=== PATIENT | male | born 1945 | race Hispanic/Latino ===

== ENCOUNTER 2017-06-07 08:29 | Outpatient (CLI) | payer MEDICARE, MEDICAID ==
--- NOTE | 2017-06-07 10:45 | ULT ---
ABDOMINAL SONOGRAM: HISTORY: Abdominal pain. FINDINGS: The gallbladder has a normal appearance without evidence of stones. The common duct is 0.7 cm in di ameter. The liver is unremarkable without focal mass or intrahepatic biliary dilatation. No free f luid is visible. Echogenicities associated with the kidneys are favored to represent arcuate arteri es. The spleen and visualized portions of the abdominal aorta, IVC, and pancreas have a normal sono graphic appearance. IMPRESSION: No significant abnormalities are demonstrated. POS: BELKISH
== END 2017-06-07 08:30 | disposition home or self-care (01) ==
LOC: ULT 08:29
PROVIDERS: ATTEND Family Medicine
DX: R10.9 Unspecified abdominal pain (principal)
CPT/HCPCS: 76700

== ENCOUNTER 2017-11-08 14:50 | Emergency (ER) | payer MEDICARE, MEDICAID ==
[2017-11-08 16:30] LABS: CKMB 2.6 ng/mL (0-6.6); Troponin I 0.017 ng/mL (< 0.028)
[2017-11-08 16:32] LABS: #Eosinphils 0.2 thou/uL (0.0-0.7); #Lymphocytes 1.1 thou/uL (1.20-3.40); #Monocytes 0.7 thou/uL (0.11-0.59); #Neutrophils 7.3 thou/uL (1.40-6.50); %Basophils 0.4 % (0.0-1.0); %Eosinophils 1.7 % (0.0-10.0); %Lymphocytes 11.5 % (21.0-51.0); %Monocytes 7.4 % (0.0-10.0); Hemoglobin 13.7 g/dL (14.0-18.0); Mean Corpuscular HGB CONC 30.7 g/dL (32.0-36.0); Mean Corpuscular Hemoglobin 31.7 pg (27.0-31.0); Mean Platelet Volume 10.3 fL (7.4-10.4); PLT Morphology Comment Appears Decreased; Platelet Count 113 thou/uL (130-400); RBC Distribution Width 13.2 % (11.5-14.5); Red Blood Cell (RBC) Count 4.32 mill/uL (4.70-6.10); White Blood Cell (WBC) Count 9.2 thou/uL (4.8-10.8)
[2017-11-08 17:07] LABS: ALT (SGPT) 10 U/L (8-55); AST (SGOT) 11 U/L (5-34); Alkaline Phosphatase 141 U/L (40-150); Anion Gap 11 mmol/L (10-20); BUN (Urea Nitrogen) 31 mg/dL (8.4-25.7); Bilirubin, Total 0.7 mg/dL (0.2-1.2); CK (CPK) 99 U/L (30-200); Calc. Creatinine Clearance 0 mL/min (70-130); Calcium 9.8 mg/dL (7.8-10.44); Carbon Dioxide 27 mmol/L (23-31); Chloride 105 mmol/L (98-107); Estimated GFR-MDRD 37; Globulin 3.1 g/dL (2.4-3.5); Glucose 192 mg/dL (83-110); Lipase 33 U/L (8-78); Potassium 5.2 mmol/L (3.5-5.1); Protein, Total 7.1 g/dL (5.8-8.1); Sodium 138 mmol/L (136-145)
--- NOTE | 2017-11-08 18:12 | RAD ---
PORTABLE CHEST: History: Cardiac symptoms. Comparison: 06-22-15 FINDINGS: Mild increased interstitial markings in the left lower lung. No evidence of confluent infiltrate or e ffusion. Heart size is in normal range with post op sternotomy changes noted. IMPRESSION: Increased interstitial markings in the left lower lung could potentially represent an interstitial in flammatory process. This may represent some chronic change. No confluent infiltrate and no evidence o f vascular congestion. POS: BELKIS
== END 2017-11-08 17:50 | disposition home or self-care (01) ==
LOC: ERS 14:50
DX: I11.0 Hypertensive heart disease with heart failure (principal); I50.9 Heart failure, unspecified; M25.572 Pain in left ankle and joints of left foot; E11.9 Type 2 diabetes mellitus without complications; E78.5 Hyperlipidemia, unspecified; Z79.4 Long term (current) use of insulin; Z79.899 Other long term (current) drug therapy
CPT/HCPCS: 36415; 71045; 80053; 82553; 83690; 83880; 84484; 85025; 93005

== ENCOUNTER 2017-12-20 13:38 | Outpatient (CLI) | payer MEDICARE, MEDICAID ==
--- NOTE | 2017-12-20 15:48 | ULT ---
BILATERAL LOWER EXTREMITY ARTERIAL VASCULAR DUPLEX WITH COLOR AND SPECTRAL DOPPLER IMAGING: HISTORY: A 72-year-old male with claudication. FINDINGS: Examination performed from groin to ankle bilaterally including visualized common femoral artery, pro kristin femoral artery, proximal mid and distal superficial femoral artery, popliteal, anterior tibial, posterior tibial, and dorsalis pedis arteries are evaluated. There is biphasic flow on the right si de from the common femoral artery down to the level of the popliteal artery with monophasic flow and decreased velocities in the anterior tibial artery and posterior tibial artery with the dorsalis pedi s already demonstrated. On the left side, there is biphasic flow involving the common femoral artery and profunda femoral artery and proximal superficial femoral artery with triphasic flow in the mid a nd distal superficial femoral artery and monophasic flow in the popliteal artery, anterior tibial art diana, and posterior vertebral artery and no flow documented in the left dorsalis pedis artery. IMPRESSION: Findings indicate moderate to severe bilateral lower extremity arteriovascular disease. Consider fur ther evaluation with bilateral lower extremity runoff CT angiogram for further assessment. POS: PARUL
== END 2017-12-20 13:39 | disposition home or self-care (01) ==
LOC: ULT 13:38
PROVIDERS: ATTEND Family Medicine
DX: M79.606 Pain in leg, unspecified (principal); I70.213 Atherosclerosis of native arteries of extremities with intermittent claudication, bilateral legs; D69.59 Other secondary thrombocytopenia; I69.351 Hemiplegia and hemiparesis following cerebral infarction affecting right dominant side
CPT/HCPCS: 93923

== ENCOUNTER 2018-03-23 13:34 | Outpatient (CLI) | payer MEDICARE, MEDICAID | END 2018-03-23 13:35 | disposition home or self-care (01) | LOC: BICMRI 13:34 | PROVIDERS: ATTEND Family Medicine | DX: M50.00 Cervical disc disorder with myelopathy, unspecified cervical region (principal); M47.12 Other spondylosis with myelopathy, cervical region; M50.021 Cervical disc disorder at C4-C5 level with myelopathy | CPT/HCPCS: 72141 ==

== ENCOUNTER 2018-06-13 11:30 | Inpatient (IN) | payer MEDICARE, MEDICAID ==
[2018-08-16 09:38] VITALS: BMI 25.6
[2018-08-23] MEDS ORDERED: Sodium Chloride 0.9% 10 ML ONE ×2 (06:37→06:40)
[2018-08-23] MEDS ORDERED: Thrombin 5000 UNITS/5 ML VIAL ONE ×2 (06:37→06:40)
[2018-08-23] MEDS ORDERED: Bacitracin Zinc Ointment 30 gm TUBE ONE (06:52)
[2018-08-23] MEDS ORDERED: CEFAZOLIN 2 GM/50 ML BAG ONE (06:54)
[2018-08-23] MEDS ORDERED: Fentanyl 250 MCG/5 ML VIAL ONE (07:09)
[2018-08-23] MEDS ORDERED: KETAMINE 100 MG/ML (5ML VIAL) ONE (07:10)
[2018-08-23] MEDS ORDERED: Insulin Regular 300 UNITS/3 ML VIAL ONE (07:33)
[2018-08-23] MEDS ORDERED: Nitroglycerin 2% Ointment 1 INCH/1 GM Packet ONE (09:29)
[2018-08-23] MEDS ORDERED: Dextrose 50% Abboject 50 ML SYRINGE ONE (09:47)
[2018-08-23] MEDS ORDERED: Morphine 2 MG/ML SYRINGE SLOW IVP PRN (12:48)
[2018-08-23] MEDS ORDERED: Fleet Enema 133 ML BOT PR PRN (12:48)
[2018-08-23] MEDS ORDERED: Mag-Al 1200 mg/1200 mg/30 ML UDCUP PO PRN (12:48)
[2018-08-23] MEDS ORDERED: Bisacodyl 10 MG SUPP PR PRN (12:48)
[2018-08-23] MEDS ORDERED: traMADol HCl 50 MG TAB PO PRN ×2 (12:48)
[2018-08-23] MEDS ORDERED: Promethazine HCl 25 MG/ML VIAL IM PRN ×2 (12:48→13:00)
[2018-08-23] MEDS ORDERED: Milk Of Magnesia 30 ML UDCUP PO PRN (12:48)
[2018-08-23] MEDS ORDERED: PACU-Morphine 4MG/ML VIAL SLOW IVP PRN (13:00)
[2018-08-23] MEDS ORDERED: Meperidine HCl/PF 25 MG/ML VIAL SLOW IVP PRN (13:00)
[2018-08-23] MEDS ORDERED: Ondansetron HCl/PF 4 MG/2 ML Vial IVP PRN (13:00)
[2018-08-23] MEDS ORDERED: Morphine Sulfate 2 MG/ML SYRINGE SLOW IVP PRN (13:00)
[2018-08-23] MEDS ORDERED: HYDROmorphone 2 MG/ML VIAL SLOW IVP PRN (13:00)
[2018-08-23] MEDS ORDERED: Promethazine HCl 25 MG/ML VIAL SLOW IVP PRN (13:00)
[2018-08-23] MEDS ORDERED: SUGAMMADEX SODIUM 200 MG/2 ML VIAL ONE (13:04)
--- NOTE | 2018-08-23 15:08 | OP ---
DATE OF PROCEDURE: 08/23/2018 OPERATING ROOM: 12. WOUND CLASSIFICATION: Type 1 wound. DRILL PRESSER: Ted Anguiano PA-C. PREPROCEDURE DIAGNOSIS: Multilevel spinal cord compression with circumferential stenosis and severe myelopathy. POSTPROCEDURE DIAGNOSIS: Multilevel spinal cord compression with circumferential stenosis and severe myelopathy. PROCEDURE PERFORMED: 1. Anterior C3-C4, C4-C5, C5-C6, and C6-C7 diskectomies for decompression of the spinal cord and nerve roots C3, C4, C5, C6, and C7. 2. Placement of interbody spacers for arthrodesis, C3-C4, C4-C5, C5-C6, and C6-C7 for arthrodesis, packed with local bone autograft obtained from same incision allograft. 3. Anterior cervical plate and screw fixation C3, C4, C5, C6, and C7. 4. Stage procedure done on the same day under the same anesthesia with posterior laminectomy C3, C4, C5, C6, and C7. 5. Screw hanna fixation C3, C4, C5, C6, and C7 for posterior lateral mass arthrodesis. 6. Posterior lateral mass fixation. 7. Posterior lateral mass arthrodesis C3, C4, C5, C6, and C7. 8. Use for arthrodesis with local bone autograft obtained from the same incision allograft. 9. Use of operative microscope for microdissection. DESCRIPTION OF PROCEDURE: After informed consent was obtained from the patient, he was brought to OR. Appropriate patient pause and identification were carried out. He was placed supine on the OR table. His cervical spine kept in neutral position. We identified a right anterior michael that would allow for approach to C3 all the way down to C7 segments. This area was sterilely cleansed, prepared and draped. Appropriate patient pause and identification were carried out. The wound was then opened from C3 and we proceeded lateral to the larynx and pharynx, medial to the right carotid sheath and identified the C3, C4, C5, C6, and C7 segments. Localization film confirmed area of interest. We then performed distraction at C3-C4 and diskectomy was performed there. Spacer was placed, packed with graft for arthrodesis. To the same procedure at C4-C5, C5-C6, and C6-C7 with diskectomies performed at all of those segments. Decompression of spinal cord and nerve roots and placement of interbody spacer packed with graft from C3-C4, C4-C5, C5-C6 and C6-C7. Anterior cervical plate and screw fixation then occurred from C3 all the way down to C7. I did use a separate plate at C3-C4 to maximize fixation given that I was not pleased with the 4 level opportunity that was posed to me. Final tightening occurred throughout. We then maximized hemostasis and the wound was closed in anatomic layers over drain. The patient was then placed and flipped prone. All appropriate points were padded. An incision was drawn out from C3 to C7 posteriorly and this area was sterilely cleansed, prepared, and draped. Appropriate patient pause and identification were carried out. The wound was then opened with a combination of sharp, monopolar, and blunt dissection and the C3, C4, C5, C6, and C7 segments were all exposed. Localization film confirmed our area of interest. We then performed lateral mass screw fixation from C3 to C7 bilaterally, although the right C7 lateral mass was quite small and I was not pleased with the purchase of the right C7 screw and as such, I opted to leave that screw out. Rods were placed and final tightening occurred. Copious irrigation occurred throughout. We then did a laminectomy from C3, C4, C5, C6, and C7 with excellent decompression of the spinal cord and nerve roots. Arthrodesis then occurred in the posterior lateral mass regions at C3, C4, C5, C6, and C7. Local bone autograft was obtained from the same incision allograft. The wound was then closed in anatomic layers following sprinkling of vancomycin powder. The patient then emerged from anesthesia. Job ID: [id number]
[2018-08-23] MEDS: Sodium Chloride 0.9% 1,000 ML IV SCH (16:03)
[2018-08-23] MEDS: tiZANidine HCl 4 MG TAB PO PRN ×2 (16:11→21:06)
[2018-08-23] MEDS: HumaLOG 300 UNITS/3 ML VIAL SC SCH ×2 (16:16→20:18)
[2018-08-23] MEDS: CEFAZOLIN 2 GM/50 ML BAG IVPB SCH ×2 (16:16→23:24)
[2018-08-23] MEDS ORDERED: Amlodipine 5 MG TAB PO SCH (16:30)
[2018-08-23] MEDS ORDERED: Atenolol 25 MG TAB PO SCH (16:30)
[2018-08-23] MEDS: Atorvastatin Calcium 40 MG TAB PO SCH (20:02)
[2018-08-23] MEDS: Insulin Glargine 25 UNITS in Pre-Filled Syringe SC SCH (20:03)
[2018-08-23] MEDS ORDERED: Non-Formulary Item 1 EACH (Levemir Flexpen [Levemir Flexpen] 25 UNIT) SC SCH (21:00)
[2018-08-23] MEDS ORDERED: Lidocaine 1% PF 5 ML VIAL ONE (21:19)
[2018-08-23] MEDS ORDERED: Dexamethasone 20 MG/5 ML VIAL ONE (21:19)
[2018-08-23] MEDS ORDERED: PROPOFOL 200 MG/20 ML VIAL ONE (21:19)
[2018-08-23] MEDS ORDERED: PHENYLEPHRINE-NS 100 MCG/ML 10 ML SYRINGE ONE (21:19)
[2018-08-23] MEDS ORDERED: Sterile Water 10 ML VIAL ONE (21:19)
[2018-08-23] MEDS ORDERED: Glycopyrrolate 0.2 MG/ML 5 ML SYRINGE ONE (21:19)
[2018-08-23] MEDS ORDERED: Ondansetron PF 4 MG/2 ML Vial ONE (21:19)
[2018-08-23] MEDS ORDERED: ePHEDrine/0.9% NaCl/PF SYRINGE 50 mg/10 ml ONE (21:19)
[2018-08-23] MEDS ORDERED: CEFAZOLIN 1 GM VIAL ONE (21:19)
[2018-08-23] MEDS ORDERED: Metoclopramide HCl 10 MG/2 ML VIAL ONE (21:19)
[2018-08-24] MEDS: Sodium Chloride 0.9% 1,000 ML IV SCH ×2 (06:10→16:39)
[2018-08-24] MEDS: Amlodipine 5 MG TAB PO SCH (08:01)
[2018-08-24] MEDS: CEFAZOLIN 2 GM/50 ML BAG IVPB SCH ×3 (08:01→23:36)
[2018-08-24] MEDS: Atenolol 25 MG TAB PO SCH (09:57)
[2018-08-24] MEDS: Ezetimibe 10 MG TAB PO SCH (09:58)
[2018-08-24] MEDS: HumaLOG 300 UNITS/3 ML VIAL SC SCH ×3 (09:58→21:53)
[2018-08-24] MEDS: Insulin Glargine 25 UNITS in Pre-Filled Syringe SC SCH ×2 (10:04→21:53)
--- NOTE | 2018-08-24 10:06 | PRG ---
DATE OF SERVICE: 08/24/2018 SUBJECTIVE: Mr. Wright is postoperative day #1 from a major surgery involving both an anterior and posterior decompression and fusion of his C3-C7 segments of the cervical spine for severe spinal cord compression. He states already he has noticed improvement in his upper and lower extremity function, and that he is now able to lift his left upper extremity, at the shoulder greater than 90 degrees which was significantly impaired preoperatively. Frankly, I think he looks great. His drain output anteriorly is certainly functioning well. We will leave it in place. I did put him in the ICU postoperatively just to watch his pulmonary status given his age of 73 and his cardiac and his cerebral ischemic history. We will initiate a baby aspirin today and transfer him to the floor. The collar only needs to be worn when he is out of bed, although he may wear it any other time for comfort. We will consult Physiatry. He would certainly benefit in my opinion from inpatient rehab. Job ID: [id number]
[2018-08-24] MEDS ORDERED: Aspirin 81 mg Enteric Coated Tablet PO SCH (10:15)
[2018-08-24] MEDS: tiZANidine HCl 4 MG TAB PO PRN (16:43)
[2018-08-24] MEDS: Atorvastatin Calcium 40 MG TAB PO SCH (21:32)
[2018-08-25] MEDS: Sodium Chloride 0.9% 1,000 ML IV SCH ×2 (05:25→18:27)
[2018-08-25] MEDS: Atenolol 25 MG TAB PO SCH (08:14)
[2018-08-25] MEDS: Ezetimibe 10 MG TAB PO SCH (08:14)
[2018-08-25] MEDS: Amlodipine 5 MG TAB PO SCH (08:15)
[2018-08-25] MEDS: Insulin Glargine 25 UNITS in Pre-Filled Syringe SC SCH ×2 (08:16→20:55)
[2018-08-25] MEDS: CEFAZOLIN 2 GM/50 ML BAG IVPB SCH ×2 (08:16→15:13)
[2018-08-25] MEDS: HumaLOG 300 UNITS/3 ML VIAL SC SCH ×3 (08:32→20:55)
[2018-08-25] MEDS ORDERED: Tamsulosin HCl 0.4 MG CAP PO SCH (10:15)
--- NOTE | 2018-08-25 10:42 | PRG ---
DATE OF SERVICE: 08/25/2018 SUBJECTIVE: Mr. Wright is postoperative day two from anterior-posterior decompression and fusion. He has noticed improvement in his upper and lower extremity function, although a bit limited in his right shoulder motion. I suspect a component of this may be frozen shoulder from preoperative longstanding myelopathy and associated weakness. He is ambulating in the halls. We will remove his Moore catheter. We need to remove his MARLA drain, which may be today or tomorrow. He is wanting to go home. We will see, if he meets criteria versus inpatient rehab. Job ID: [id number]
[2018-08-25] MEDS: Atorvastatin Calcium 40 MG TAB PO SCH (20:55)
[2018-08-26] MEDS: tiZANidine HCl 4 MG TAB PO PRN (00:09)
[2018-08-26] MEDS: Sodium Chloride 0.9% 1,000 ML IV SCH (07:26)
[2018-08-26] MEDS: CEFAZOLIN 2 GM/50 ML BAG IVPB SCH ×2 (08:13)
[2018-08-26] MEDS: Atenolol 25 MG TAB PO SCH (08:14)
[2018-08-26] MEDS: Ezetimibe 10 MG TAB PO SCH (08:14)
[2018-08-26] MEDS: Amlodipine 5 MG TAB PO SCH (08:15)
[2018-08-26 08:16] VITALS: BP 137/70
[2018-08-26] MEDS: HumaLOG 300 UNITS/3 ML VIAL SC SCH (08:16)
[2018-08-26] MEDS: Insulin Glargine 25 UNITS in Pre-Filled Syringe SC SCH (08:21)
[2018-08-26 08:33] VITALS: TEMP 97.5
== END 2018-08-26 11:35 | DRG 454 ==
LOC: SURG A 08-23 06:04 → CCU 08-23 15:23 → SURG A 08-24 21:05
PROVIDERS: ADMIT Surgery; ATTEND Surgery
PROC: 0RG20A0 Fusion of 2 or more Cervical Vertebral Joints with Interbody Fusion Device, Anterior Approach, Anterior Column, Open Approach (ICD-10-PCS; principal; 2018-08-23)
PROC: 0RG2071 Fusion of 2 or more Cervical Vertebral Joints with Autologous Tissue Substitute, Posterior Approach, Posterior Column, Open Approach (ICD-10-PCS; 2018-08-23)
PROC: 0RB30ZZ Excision of Cervical Vertebral Disc, Open Approach (ICD-10-PCS; 2018-08-23)
PROC: 01N10ZZ Release Cervical Nerve, Open Approach (ICD-10-PCS; 2018-08-23)
PROC: 00NW0ZZ Release Cervical Spinal Cord, Open Approach (ICD-10-PCS; 2018-08-23)
DX: M48.02 Spinal stenosis, cervical region (principal); G99.2 Myelopathy in diseases classified elsewhere; M54.12 Radiculopathy, cervical region
CPT/HCPCS: 36416; 76001; A4216; C1713; C1768; C1776; G8978-GP-CL; G8979-GP-CJ; G8987-GO-CK; G8988-GO-CI; J0690; J1100; J1815; J2001; J2405; J2704; J2765; J3010; J3370; J3490; J7620

== ENCOUNTER 2018-08-16 09:07 | Outpatient (CLI) | payer MEDICARE, MEDICAID ==
[2018-08-16 11:04] LABS: Hemoglobin 13.3 g/dL (14.0-18.0); Mean Corpuscular HGB CONC 31.7 g/dL (32.0-36.0); Mean Corpuscular Hemoglobin 32.1 pg (27.0-31.0); Mean Platelet Volume 8.6 fL (7.4-10.4); Platelet Count 107 thou/uL (130-400); RBC Distribution Width 12.7 % (11.5-14.5); Red Blood Cell (RBC) Count 4.15 mill/uL (4.70-6.10); White Blood Cell (WBC) Count 9.9 thou/uL (4.8-10.8)
[2018-08-16 11:10] LABS: INR-International Normal Ratio 1.1; PTT 31.3 SEC (22.9-36.1); Prothrombin Time 14.3 SEC (12.0-14.7)
[2018-08-16 11:24] LABS: Anion Gap 9 mmol/L (10-20); BUN (Urea Nitrogen) 33 mg/dL (8.4-25.7); Calc. Creatinine Clearance 0 mL/min (70-130); Calcium 9.3 mg/dL (7.8-10.44); Carbon Dioxide 30 mmol/L (23-31); Chloride 101 mmol/L (98-107); Estimated GFR-MDRD 37; Glucose 189 mg/dL (83-110); Potassium 4.5 mmol/L (3.5-5.1); Sodium 135 mmol/L (136-145)
== END 2018-08-16 09:08 | disposition home or self-care (01) ==
LOC: LABBT 09:07
PROVIDERS: ATTEND Surgery
DX: Z01.818 Encounter for other preprocedural examination (principal); M47.12 Other spondylosis with myelopathy, cervical region
CPT/HCPCS: 80048; 85027; 85610; 85730; 93005; 93010

== ENCOUNTER 2018-10-05 13:30 | Outpatient (CLI) | payer MEDICARE, MEDICAID ==
--- NOTE | 2018-10-05 14:16 | RAD ---
CERVICAL SPINE 4 VIEWS: INDICATION: Followup surgery. COMPARISON: Prior MRI of the cervical spine dated 03/23/2018. FINDINGS: Since the comparison MRI examination, there has been interval performance of an ACDF plating from C4 through C7. There is posterolateral spinal instrumentation spanning C3 through C7. The instrumentat ion projects in the expected position. Spinal alignment is within normal limits. Lung apices are cl ear. Lateral masses are symmetric. IMPRESSION: Postoperative cervical spine. POS: PARUL
== END 2018-10-05 13:31 | disposition home or self-care (01) ==
LOC: TBSIIMAG 13:30
PROVIDERS: ATTEND Surgery
DX: M47.12 Other spondylosis with myelopathy, cervical region (principal); M47.22 Other spondylosis with radiculopathy, cervical region; Z98.1 Arthrodesis status
CPT/HCPCS: 72040

== ENCOUNTER 2019-01-04 08:20 | Outpatient (CLI) | payer MEDICARE, MEDICAID ==
--- NOTE | 2019-01-04 09:26 | ULT ---
RIGHT UPPER QUADRANT ULTRASOUND: Date: 01/04/19 HISTORY: Right upper quadrant pain. FINDINGS: The liver, right kidney, and visualized portions of the pancreas appear normal. Common duct measures 4.0 mm in diameter. No gallstones, gallbladder wall thickening, or pericholecystic fluid seen. There is a trace amount of gallbladder sludge. No free fluid is seen. IMPRESSION: Trace gallbladder sludge, otherwise unremarkable exam. POS: TPC
== END 2019-01-04 08:21 | disposition home or self-care (01) ==
LOC: BICULT 08:20
PROVIDERS: ATTEND Family Medicine
DX: R10.9 Unspecified abdominal pain (principal)
CPT/HCPCS: 76705

== ENCOUNTER 2019-07-19 07:05 | Inpatient (IN) | payer MEDICARE, MEDICAID ==
--- NOTE | 2019-07-19 07:23 | CT ---
CT BRAIN NONCONTRAST: DATE: 07/19/2019 HISTORY: 74-year-old male with acute stroke symptoms. Left sided weakness. Dr. Erickson gave this acute stroke alert protocol by telephone to Dr. Vieyra at 7:19 AM on 07/19/2019 FINDINGS: There is no evidence of acute intra-axial or extra-axial hemorrhage. There is no midline shift or any other mass effect. There is no extra-axial fluid collection. There is no evidence of obstructive hydrocephalus. Calvarium is intact. There is diffuse brain parenchymal volume loss. There are low att enuation areas in the white matter. These are nonspecific, but in a patient of this age, they are probably chronic ischemic white matter changes due to microvascular atherosclerosis. Small old lacuna r infarction at the left thalamus, left cerebral peduncle, and left meagan. IMPRESSION: 1) No acute intracranial findings. 2) involutional changes and chronic ischemic white matter changes. 3) old lacunar infarction of left thalamus and left brainstem.
[2019-07-19] MEDS ORDERED: Lorazepam 2 MG/ML VIAL ONE (07:29)
[2019-07-19 07:41] LABS: INR-International Normal Ratio 1.1; PTT 29.6 SEC (22.9-36.1); Prothrombin Time 13.7 SEC (12.0-14.7)
[2019-07-19 07:44] LABS: #Eosinphils 0.1 thou/uL (0.0-0.7); #Lymphocytes 1.6 thou/uL (1.20-3.40); #Monocytes 0.8 thou/uL (0.11-0.59); %Basophils 0.2 % (0.0-1.0); %Eosinophils 1.3 % (0.0-10.0); %Lymphocytes 14.1 % (21.0-51.0); %Monocytes 7.1 % (0.0-10.0); %Neutrophils 77.4 % (42.0-75.0); Hemoglobin 13.5 g/dL (14.0-18.0); Mean Corpuscular HGB CONC 33.4 g/dL (32.0-36.0); Mean Corpuscular Hemoglobin 33.4 pg (27.0-31.0); Mean Corpuscular Volume 99.9 fL (78.0-98.0); Mean Platelet Volume 11.1 fL (7.4-10.4); Platelet Count 97 thou/uL (130-400); RBC Distribution Width 12.8 % (11.5-14.5); Red Blood Cell (RBC) Count 4.05 mill/uL (4.70-6.10); White Blood Cell (WBC) Count 11.6 thou/uL (4.8-10.8)
[2019-07-19 07:45] LABS: ALT (SGPT) 12 U/L (8-55); AST (SGOT) 11 U/L (5-34); Alkaline Phosphatase 178 U/L (40-110); Anion Gap 13 mmol/L (10-20); BUN (Urea Nitrogen) 32 mg/dL (8.4-25.7); Bilirubin, Total 0.5 mg/dL (0.2-1.2); Calc. Creatinine Clearance 0 mL/min (70-130); Calcium 9.4 mg/dL (7.8-10.44); Carbon Dioxide 27 mmol/L (23-31); Chloride 104 mmol/L (98-107); Estimated GFR-MDRD 31; Glucose 247 mg/dL (83-110); Potassium 4.5 mmol/L (3.5-5.1); Sodium 139 mmol/L (136-145)
[2019-07-19] MEDS ORDERED: Aspirin Chewable 81 MG TAB ONE (08:09)
[2019-07-19] MEDS ORDERED: hydrALAZINE 20 MG/ML VIAL ONE (08:37)
[2019-07-19] MEDS ORDERED: Haloperidol Lactate 5 MG/ML VIAL ONE ×3 (08:52→09:13)
[2019-07-19] MEDS ORDERED: Labetalol HCl 100 MG/20 ML VIAL SLOW IVP PRN (11:57)
[2019-07-19] MEDS ORDERED: HumaLOG 300 UNITS/3 ML VIAL SC PRN ×2 (11:57)
[2019-07-19] MEDS ORDERED: Dextrose 5% in Water 1,000 ML IV PRN (11:57)
[2019-07-19] MEDS ORDERED: Bisacodyl 10 MG SUPP PR PRN (11:57)
[2019-07-19] MEDS ORDERED: Dextrose 50% Abboject 50 ML SYRINGE SLOW IVP PRN (11:57)
[2019-07-19] MEDS ORDERED: hydrALAZINE 20 MG/ML VIAL SLOW IVP PRN (11:57)
[2019-07-19] MEDS ORDERED: Senokot S 8.6-50 MG TAB PO PRN (11:57)
[2019-07-19] MEDS ORDERED: Ondansetron PF 4 MG/2 ML Vial IVP PRN (11:57)
--- NOTE | 2019-07-19 12:34 | RAD ---
XR Chest 1 View HISTORY: TIA COMPARISON: 11/08/2017 FINDINGS: The heart size is normal. The aorta is tortuous. The lungs are well expanded without focal areas of consolidation, pneumothorax or pleural effusions. There are postoperative changes and metallic hardware in the cervical spine. There are postop changes of median sternotomy. IMPRESSION: No radiographic evidence of acute cardiopulmonary process.
[2019-07-19] MEDS ORDERED: Iopamidol-370 76% 500 ML 1 ML ONE (14:27)
--- NOTE | 2019-07-19 16:24 | HP ---
REASON FOR ADMISSION: Acute encephalopathy, possible CVA. HISTORY OF PRESENT ILLNESS: Please note, majority of this history is obtained by talking to the patient's and other family members in the room as the patient is not oriented at present. He apparently got up at 4:00 in the morning and was unsteady when he was trying to get out of restroom. He could not use a walker. had to make him sit on the seat of the walker and she managed to push him to the sitting room. She made him sit on the couch, but he was falling off, in fact sliding off to either side and was not steady. He was not fully conscious. One time he even slid off the sofa. She called the patient's daughter, who in turned called EMS and the patient was brought here. On arrival here, the patient got agitated and was given 1 mg of Ativan IV push. The patient in fact got more agitated and had to be given Haldol 5 mg IV push x2. His blood pressure was 204 /90 on arrival and was given hydralazine 20 mg IV push and oral aspirin. He was a stroke activation in the ER. Initial CT brain done shows no evidence of acute bleed. He has old lacunar infarct in the left thalamus and left brainstem area. The patient is past-pointing on the right upper extremity. Per family, he has had a previous stroke and they think it is on the right side. Again, there is some confusion. He has dense hemiplegia on the left side at present. He also has decerebrating signs on the left upper extremity. No history of fever, cough, or expectoration. No history of chest pain. He was last seen normal last night. The mentions that he usually gets up once or twice in the night to go pass urine. He normally ambulates using a cane, although he has a walker, which he does not use. 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 CURRENT MEDICATIONS: The patient is on; 1. Plavix 75 mg p.o. daily. 2. Levemir 25 units subcu daily. 3. NovoLog 7 units subcu 3 times daily. 4. Atorvastatin 80 mg p.o. daily. 5. Zetia 10 mg p.o. daily. 6. Protonix 440 mg daily. 7. Sertraline 50 mg daily. 8. Amlodipine 5 mg daily. 9. Atenolol 25 mg daily. 10. Plavix 75 mg daily. ALLERGIES: ALLERGIC TO VICODIN. PERSONAL HISTORY: Does not abuse alcohol or drugs. No history of smoking per family. FAMILY HISTORY: Father in his 60s. He was killed. Apparently, he was an alcohol abuser as well. Mother at the age of 74 years. She had history of coronary artery disease and diabetes. REVIEW OF SYSTEMS: Cannot be obtained as the patient is not oriented at present. CODE STATUS: Full. This was discussed with the patient's , who is also power of scleroscope tester for him. PHYSICAL EXAMINATION: GENERAL: The patient is a 74-year-old male, who is currently obtunded at present after receiving multiple doses of Haldol and Ativan in the ER. VITAL SIGNS: Blood pressure 204/92 on arrival, pulse 76 per minute, respiratory rate 18 per minute, temperature 98.8 degrees Fahrenheit, and saturating 99% on room air. NECK: Supple. No elevated JVD. HEENT: Eyes; extraocular muscles intact. Pupils reacting to light. Oral cavity, mucous membranes are dry. No exudates or congestion. CARDIOVASCULAR SYSTEM: S1 and S2 heard, regular rhythm. RESPIRATORY SYSTEM: Air entry 1+ bilateral. There are rhonchi plus no rales. ABDOMEN: Soft. Bowel sounds heard. No tenderness, rigidity, or guarding. EXTREMITIES: The patient's lower extremities are thinned out, likely has disuse atrophy. He is actively moving lower extremities. He moves right extremities better than left. No calf tenderness. Peripheral pulses are 1+ bilateral. No ischemic ulcerations or gangrene. CENTRAL NERVOUS SYSTEM: The patient has likely left dense hemiplegia with decerebrating signs in the left upper extremity. He is moving his right upper extremity but is post-pointing. He is not oriented. Does not move any extremities on verbal stimuli. Gait was not tested. PSYCHIATRIC SYSTEM: Cannot be accurately assessed as the patient is obtunded at present. DIAGNOSTIC DATA: CT brain done shows old lacunar infarct in the left thalamus and left brainstem. No acute intracranial findings per Radiology report. He has involutional changes and chronic ischemic white matter changes. Chest x-ray done shows no acute cardiopulmonary abnormalities. BUN 32, creatinine 2.1, serum glucose 247, AST and ALT within normal limits, alkaline phosphatase 178, total bilirubin 0.5, and albumin 4.0. Electrolytes stable. PT, INR, and PTT within normal limits. White count of 11, H and H of 13 and 40, platelet count is 97 with 77% neutrophils, and MCV is 99. The prior brain MRI done in May of 2014 shows findings of acute infarct in the left aspect of the meagan. EKG done shows normal sinus rhythm at 82 beats per minute. There is RBBB seen. CLINICAL IMPRESSION AND PLAN: The patient will be admitted to [facility] for likely acute cerebrovascular accident with left hemiplegia, acute metabolic encephalopathy, has signs of decerebration seen in the left upper extremity. He will be on full- dose aspirin per rectum. Half NS at 100 mL per hour. The patient has acute kidney injury on top of chronic kidney disease, stage 3. He also has hypertensive emergency and will be placed on clonidine transdermal patch, hydralazine IV, labetalol IV p.r.n., Crestor 20 mg p.o. at bedtime if he can tolerate, and Zoloft at home doses if he can tolerate orally. MRI without contrast and echo with 2D Doppler will be done. An EEG has been done and does not show any epileptiform focus. Neurology consultation with Dr. Brady will be obtained. We will also obtain consultation with Dr. Magallon for Nephrology. The patient needs close monitoring for airway. He is currently maintaining it. If the patient gets more obtunded, likely he will need intubation as he is a full code. I have discussed his CAT scan findings, clinical exam findings, and possible guarded prognosis with family. Job ID: [id number] [facility]
[2019-07-19 16:27] LABS: Lactic Acid 2.3 mmol/L (0.5-2.2)
--- NOTE | 2019-07-19 16:44 | CT ---
CTA OF THE HEAD WITH AND WITHOUT IV CONTRAST AND 3-D REFORMATTED IMAGING. CTA OF THE NECK WITH IV CONTRAST AND 3-D REFORMATTED IMAGING. INDICATION: Stroke COMPARISON: Noncontrast CT of the brain dated 07/19/2019 at 7:12 AM FINDINGS: CTA OF THE HEAD WITH AND WITHOUT CONTRAST: NONCONTRAST CT OF BRAIN: Hemorrhage: None Ishemia/Infarction: There is a remote lacunar infarct involving the right basal ganglion left parame hood meagan. Midline Shift: None. Hydrocephalus: None. Skull and Extracranial Soft tissues: Normal. CTA OF THE BRAIN: Right ICA: There is dense calcification involving the cavernous and supraclinoid right ICA. This jackson its quantification of the suspected narrowing involving the distal cavernous and supraclinoid ICA; however, severe hemodynamically significant stenosis is suspected. Right MCA: Patent. Right JOSE: Patent. ACOM: Patent. Left ICA: There is dense atherosclerotic calcification involving the cavernous and supraclinoid left ICA that limits quantification of narrowing suspected involving the left ICA. Moderate to severe stenosis is suspected within the distal left cavernous ICA. Left MCA: Patent. Left JOSE: Patent. PCOMs: Patent. Vertebral arteries: The right intracranial vertebral artery demonstrates mild to moderate calcificat ion without definite hemodynamically significant stenosis. The left vertebral artery is diminutive in largely terminates as the left PICA. Basilar Artery: Patent. lab pack chemist: Patent. Incidentals: No abnormal enhancement. CTA OF THE NECK WITH CONTRAST: Right CCA: Patent. Right ICA: There is 33% luminal caliber narrowing involving the proximal right internal carotid april ry. Majority of this narrowing is related to heavily calcified atherosclerotic plaque. Right Subclavian: Patent. Right Vertebral Artery: Patent. Left CCA: Patent. Left ICA: There is 50% luminal caliber narrowing involving the origin and proximal left ICA. Left Subclavian: Patent. Left Vertebral Artery: Patent. Aerodigestive tract: Clear. Parotids/Submandibular/Thyroid glands: Normal. Lymph nodes: No pathologically enlarged lymph nodes. Lung Apices: Clear. Bones: There is extensive postsurgical change consistent with a 360 degree fusion from C3 through C7 . There are laminectomy changes at C3-C6. Incidentals: None. IMPRESSION: 1. Suspected severe hemodynamically significant stenosis involving the cavernous and supraclinoid rig ht ICA. The extent of the calcification of the ICA at this level limits quantification of the narrowing. There is 33% luminal caliber narrowing involving the proximal cervical right ICA just dist al to the right carotid bulb. 2. 50% luminal caliber narrowing involving the origin and proximal left cervical ICA. There is suspec walter hemodynamically significant stenosis that is moderate to severe at the level of the left cavernous ICA distally due to severe calcified atherosclerotic plaque.
[2019-07-19] MEDS: Sodium Chloride 0.45% 1,000 ML IV SCH (17:28)
[2019-07-19] MEDS: Rosuvastatin 20 MG TAB PO SCH (20:08)
[2019-07-19] MEDS ORDERED: diphenhydrAMINE 50 MG/ML VIAL ONE (22:07)
[2019-07-19] MEDS ORDERED: diphenhydrAMINE 50 MG/ML VIAL IVP SCH ×2 (22:15→22:30)
[2019-07-19] MEDS ORDERED: Bacteriostatic Water 30 ML VIAL FS PRN (22:28)
[2019-07-19] MEDS ORDERED: methylPREDNISolone Sod Succ/PF 125 MG/2 ML VIAL IVP SCH (22:30)
[2019-07-19] MEDS ORDERED: Famotidine/PF 20 mg/2ml Vial IVPB SCH (22:30)
[2019-07-19] MEDS ORDERED: Famotidine/PF 20 mg/2ml Vial SLOW IVP SCH (22:45)
[2019-07-19] MEDS ORDERED: EPINEPHrine 1 MG/ML AMP IM SCH (23:00)
[2019-07-20] MEDS: Sodium Chloride 0.45% 1,000 ML IV SCH ×2 (02:05→09:13)
[2019-07-20] MEDS ORDERED: Bacteriostatic Water 30 ML VIAL FS PRN (05:53)
[2019-07-20] MEDS ORDERED: methylPREDNISolone Sod Succ/PF 125 MG/2 ML VIAL IVP SCH (06:00)
[2019-07-20] MEDS ORDERED: EPINEPHrine 1 MG/ML AMP IM SCH (06:00)
[2019-07-20 06:31] LABS: Albumin 4.1 g/dL (3.4-4.8); Anion Gap 16 mmol/L (10-20); BUN (Urea Nitrogen) 38 mg/dL (8.4-25.7); BUN/Creatinine Ratio 18.27; Calc. Creatinine Clearance 23 mL/min (70-130); Calcium 9.4 mg/dL (7.8-10.44); Carbon Dioxide 22 mmol/L (23-31); Cardiac Risk 3.4 (Less than 4.5); Chloride 103 mmol/L (98-107); Cholesterol 193 mg/dl (< 200 Desired); Estimated GFR-MDRD 31; Glucose 342 mg/dL (83-110); HDL Cholesterol 57 mg/dL (>60 Neg Risk); LDL Cholesterol, Calculated 116 mg/dL; Phosphorus 2.7 mg/dL (2.3-4.7); Potassium 4.3 mmol/L (3.5-5.1); Sodium 137 mmol/L (136-145); Triglycerides 100 mg/dL (Less than 150)
[2019-07-20 06:44] LABS: Band 1 % (5-11); Hemoglobin 13.3 g/dL (14.0-18.0); Lymphocytes 1 % (21-51); MDiff Complete? YES; Mean Corpuscular HGB CONC 33.4 g/dL (32.0-36.0); Mean Corpuscular Hemoglobin 33.4 pg (27.0-31.0); Mean Platelet Volume 11.5 fL (7.4-10.4); Neutrophil 98 % (42-75); Platelet Count 96 thou/uL (130-400); Platelet Morphology Comment Appears Decreased; RBC Distribution Width 13.1 % (11.5-14.5); Red Blood Cell (RBC) Count 3.97 mill/uL (4.70-6.10); White Blood Cell (WBC) Count 14.9 thou/uL (4.8-10.8)
[2019-07-20 07:59] LABS: Base Excess (BEa) -4.1 mEq/L (-2.0 to +3.0); CO2 Tension 43.8 mmHg (35.0-45.0); Calcium, Ionized 1.21 mmol/L (1.12-1.30); Carboxyhemoglobin (COHb) 1.3 gm% (0.0-3.0); Hemoglobin (Hb) 13.5 g/dL (14.0-18.0); O2 Tension (PaO2) 82.5 mmHg (> 70.0); Potassium - ABG Lab 3.75 mmol/L (3.70-5.30); Puncture Site LBA; pH, Arterial 7.32 (7.35-7.45)
[2019-07-20] MEDS ORDERED: Racepinephrine 2.25% 0.5 ML NEB ONE (08:03)
--- NOTE | 2019-07-20 10:00 | CON ---
DATE OF CONSULTATION: 07/20/2019 CONSULTING PHYSICIAN: Dr. Guillen. REASON FOR CONSULTATION: Acute kidney injury. REASON FOR ADMISSION: Altered mentation. HISTORY OF PRESENT ILLNESS: This is a 74-year-old male with history of CKD, CVA, hypertension, GERD, came to the hospital with altered mentation, is being evaluated. He also has concerns for allergic reaction with tongue swelling and shortness of breath. He is being evaluated in IMCU, might need intubation at this point. He is waiting for Pulmonary evaluation today. The patient is not able to give a good history. No family members at the bedside. No nausea or vomiting. No chest pain or palpitation. PAST MEDICAL HISTORY: Positive for CKD and followed by Dr. Mendieta, CVA, hypertension, dysphagia, hemiparesis, type 2 diabetes, coronary artery disease, osteomyelitis, GERD. PAST SURGICAL HISTORY: Laser eye surgery, CABG, and amputations. HOME MEDICATIONS: 1. Plavix. 2. Levemir. 3. NovoLog. 4. Atorvastatin. 5. Zetia. 6. Protonix. 7. Sertraline. 8. Amlodipine. 9. Atenolol. ALLERGIES: TO VICODIN. SOCIAL HISTORY: No smoking, alcohol, or illicit drugs. FAMILY HISTORY: Positive for heart disease. REVIEW OF SYSTEMS: Could not be obtained due to altered mentation. PHYSICAL EXAMINATION: GENERAL: This is an elderly male, in no apparent distress, confused. VITAL SIGNS: Temperature 97.3, pulse 107, respiratory rate 19, blood pressure 196/90. HEENT: Atraumatic and normocephalic, enlarged tongue. NECK: Supple. CV: S1 and S2 heard. RESPIRATORY: Clear. GI: Abdomen is soft. MUSCULOSKELETAL: No edema. DERMATOLOGIC: No skin rash. NEUROLOGIC: Confused. LABORATORY DATA: Hemoglobin 13.3. Potassium 4.3, BUN is creatinine is 2.08 and his baseline creatinine 1.5 to 1.8. ASSESSMENT AND PLAN: 1. Acute kidney injury on chronic kidney disease, stage 3. Renal function seems to be stable, close to baseline, it is slightly better than it was on admission. We will continue to monitor. Currently on IV hydration. Continue IV hydration as tolerated. Avoid nephrotoxins. We will follow. 2. Anemia, mild. 3. History of hypertension. 4. Edema, controlled. 5. History of CVA. 6. Altered mentation, less likely from uremia, rule out other causes. Management per Primary Team. We will continue to monitor. Avoid nephrotoxins. Medication list reviewed and we will follow the case along with you. Thank you for the consult. Job ID: [id number]
[2019-07-20] MEDS: Enoxaparin Sodium 30 MG/0.3 ML SYRINGE SC SCH (10:20)
[2019-07-20] MEDS: Aspirin 300 MG Suppository PR SCH (10:21)
--- NOTE | 2019-07-20 12:40 | PDOC.HOSPP ---
- Subjective Encounter Date: 07/20/19 Encounter Time: 12:30 Subjective: cc: follow-up for possible stroke subjective: patient is new to me. seen and examined. chart, labs, imaging results reviewed. patient restless on bipap. difficulty to engage and interact with. RN notes patient has been intermittently restless and placed on bipap earlier today and notes tongue protrusion. nurse notes difficulty in obtaining accurate NIHSS - Objective Vital Signs & Weight: Vital Signs (12 hours) Temp Pulse Resp Pulse Ox 07/20/19 12:00 98.9 F 07/20/19 11:57 98 07/20/19 09:55 85 13 96 07/20/19 08:06 107 H 21 H 92 L 07/20/19 08:00 97.3 F L 97 07/20/19 07:20 96 07/20/19 03:38 98.0 F Weight Weight 119 lb 3.2 oz Most Recent Monitor Data Heart Rate from ECG 81 NIBP 157/80 NIBP BP-Mean 105 Respiration from ECG 28 SpO2 97 Result Diagrams: 07/20/19 05:43 07/20/19 05:43 Additional Labs: Accuchecks 07/20/19 07/20/19 07/20/19 12:15 05:45 04:32 POC Glucose 305 H 313 H 308 H 07/20/19 00:13 POC Glucose 337 H Hospitalist ROS - Review of Systems Other: pertinent positives per SUBJECTIVE; remainder ROS otherwise negative. limited due to patient unreliability - Medication Medications: Active Medications Generic Name Dose Route Start Last Admin Trade Name Freq PRN Reason Stop Dose Admin Aspirin 300 mg 07/20/19 09:00 07/20/19 10:21 Aspirin WI 300 mg DAILY POPEYE Administration Enoxaparin Sodium 30 mg 07/20/19 09:00 07/20/19 10:20 Lovenox SC 30 mg 0900 POPEYE Administration Hydralazine HCl 10 mg 07/19/19 11:57 07/19/19 21:58 Apresoline SLOW IVP 10 mg Q4H PRN Administration BP > 220/110 Sodium Chloride 1,000 mls @ 100 mls/hr 07/19/19 12:00 07/20/19 09:13 1/2 Normal Saline IV Not Given .Q10H POPEYE Insulin Human Lispro 0 units 07/19/19 11:57 07/20/19 06:09 Humalog SC 5 unit .MILD SLIDING SCALE PRN Administration Mild Correctional Scale Insulin Human Lispro 0 units 07/19/19 11:57 07/20/19 00:16 Humalog SC 4 unit .BEDTIME SLIDING SC PRN Administration Bedtime Correctional Scale Rosuvastatin Calcium 20 mg 07/19/19 21:00 07/19/19 20:08 Crestor PO Not Given HS POPEYE Sertraline HCl 50 mg 07/20/19 09:00 07/20/19 07:36 Zoloft PO Not Given QAM POPEYE - Exam General - other findings: elderly male awake, restless, on bipap, difficult to engage Eye - other findings: PERR, EOMI, miotic pupils ENT: normocephalic atraumatic ENT - other findings: tongue protrusion noted Heart: RRR, no murmur Respiratory: normal chest expansion Respiratory - other findings: restless, limited evaluation, on NIPPV Gastrointestinal: soft, non-tender, non-distended Extremities: no cyanosis, no edema Psychiatric - other findings: restless and difficul to assess Hosp A/P - Plan acute encephalopathy, concerning for possible acute stroke. MRI currently cannot be obtained due to restlessness. minimize sedatives and pyschotropics. continue NIPPV, ABG unremarkable. carotid ultrasound noted with stenosis. monitor blood cultures for infectious etiology monitor renal function for metabolic etiology await neurology consultation. possible acute respiratory distress. patient placed on NIPPV by ICU team. ABG noted. tongue protrusion noted. monitor for airway protection BIBI on CKD3, continue IVF. nephrolgy on consultation. hold nephrotoxins. noted patient received IV contrast in ER. carotid artery stenosis. carotid ultrasound noted. await neurology evaluation. history ACDF 08/2018 history of stroke and TIA T2DM with uncontrolled accuchecks. monitor blood sugars DVT px, lovenox Dispo: continue inpatient monitoring check AM labs
[2019-07-20] MEDS ORDERED: FLU VACC TS2019-20(65YR UP)/PF 180 MCG/0.5 ML SYRINGE IM ONE (17:30)
[2019-07-20] MEDS ORDERED: Prevnar 13-Val Conj/PF 0.5 ML SYRINGE IM ONE (17:30)
--- NOTE | 2019-07-20 19:58 | CON ---
DATE OF CONSULTATION: 07/20/2019 CONSULTING PHYSICIAN: Hospitalist Service. IMPRESSION: 1. Possible new stroke with increased dysarthria and questionable left-sided weakness. 2. Prior stroke with right-sided weakness. 3. Severe apnea. 4. Diabetes. 5. Chronic renal insufficiency. 6. Aspirin, Plavix failure. PLAN: Consider switching to Aggrenox if a stroke is confirmed. HISTORY OF PRESENT ILLNESS: Mr. Wright is a 74-year-old gentleman who was brought in by the family due to increased dysarthria and questionable left-sided weakness. He had a prior history of a right-sided paresis from a prior stroke. He has been witnessed to have some left-sided weakness yesterday that is less clear today. He has had some persistent dysarthria, which the family reports is new for him. He has been noted to be severely apneic both centrally and with some obstructive component. He is now on a BiPAP to help address this. He had a CT scan of the brain done, which did not show any acute changes. CT angiogram showed a 33% right carotid stenosis and a higher grade intracranial ICA stenosis of questionable severity. The left ICA was 50% stenotic with calcifications as well. PAST MEDICAL HISTORY: As listed above. ALLERGIES: ACETAMINOPHEN, CODEINE, HYDROCODONE. SOCIAL HISTORY: No tobacco or illicit drug use known. FAMILY HISTORY: Noncontributory. REVIEW OF SYSTEMS: Ten-system review of systems is otherwise negative. PHYSICAL EXAMINATION: GENERAL: He is a thin elderly gentleman lying in bed, in no acute distress. VITAL SIGNS: Stable, he is afebrile. HEENT: Pupils are equal. Conjunctivae clear. Oropharynx is clear. His mucous membranes are dry. His tongue is somewhat protuberant. Cranium, normocephalic and atraumatic. NECK: Supple, no lymphadenopathy. EXTREMITIES: No cyanosis or edema. NEUROLOGIC: He was alert and cooperative. His speech was moderately dysarthric, but appeared to be fluent. Cranial nerve exam was grossly symmetric. Motor exam showed some spastic weakness in the right upper extremity. He had antigravity strength and can do [id number] movements on the left. He had good customs brokerage agent strength on the left. He had antigravity strength in the left leg also. Sensation was intact. Gait was not tested. No abnormal movements were seen. LABORATORY DATA: EKG shows a sinus rhythm. SUMMARY: This elderly man with possible new small vessel stroke resulting in some dysarthria. Could consider switching him over to Aggrenox if he is able to swallow. This is dosed one twice a day. Otherwise, his workup is complete and I have nothing further. Job ID: [id number]
[2019-07-20] MEDS: Rosuvastatin 20 MG TAB PO SCH (22:09)
--- NOTE | 2019-07-20 23:42 | CON ---
DATE OF CONSULTATION: 07/20/2019 SERVICE: Pulmonary Medicine. REASON FOR CONSULTATION: CU patient. HISTORY OF PRESENT ILLNESS: The patient is a 74-year-old male with past medical history significant for peripheral vascular disease and history of stroke. Ultimately, he is in his usual state of health, he is able to get around, with a walker. He has significant deconditioning, but not much in the way of debility. He was in his usual state of health when he had abrupt onset of hemiplegia. He presented to the emergency department. His dense hemiplegia improved a little bit. He was placed in the IMCU. Overnight, he became agitated, got a dose of Haldol and Ativan. Shortly thereafter, he ended up having swelling of the tongue. He was whisked down to the IM for fear that he was having some anaphylactic reaction. Multiple rounds of epinephrine, Benadryl, Pepcid, and steroids were provided. He did not have significant improvement in symptoms and continued to have obstructive like changes. This morning, I got a phone call to come evaluate the patient. I watched his pattern of breathing for a period of time and it looked more consistent with obstructive sleep apnea. His tongue was not terribly swollen. He had normal rugae about it. He is completely encephalopathic and not able to provide any additional elements of the history. At this point, he does not look to be in any distress. PAST MEDICAL HISTORY: 1. Peripheral vascular disease, quite severe. 2. History of cerebrovascular accident. 3. Type 2 diabetes mellitus. 4. Coronary artery disease. 5. History of osteomyelitis with multiple toe amputations. 6. Chronic kidney disease, stage 3. 7. Gastroesophageal reflux disease. PAST SURGICAL HISTORY: 1. Coronary artery bypass graft surgery. 2. Cervical diskectomy. 3. Right toe amputations. 4. Laser eye surgery. FAMILY HISTORY: Noncontributory. SOCIAL HISTORY: Currently negative for alcohol, tobacco, or illicit drug use. He has no known exposures that we are aware. ALLERGIES: VICODIN. MEDICATIONS: List of his inpatient medications was reviewed. No specific updates were made at this time. REVIEW OF SYSTEMS: This cannot be obtained as the patient is completely encephalopathic. PHYSICAL EXAMINATION: VITAL SIGNS: Afebrile, pulse 81, blood pressure 143/113, respirations 14, saturation 99% on 21% FiO2 delivered via BiPAP at 13/9. GENERAL: The patient is encephalopathic. He is mildly somnolent. With stimulation, he will wake up, and drift off to sleep in less than 10 seconds without stimulation. He follows some simple commands. He is moving all 4 extremities spontaneously. HEENT: Normocephalic and atraumatic. Sclerae are white. Conjunctivae are pink. Oral mucosa is moist without lesions. LUNGS: Decent air entry. Rhonchi are present. There is no prolonged expiratory phase or wheezing present. HEART: Normal rate, regular. ABDOMEN: Soft. Nontender, nondistended, bowel sounds are positive. MUSCULOSKELETAL: No cyanosis or clubbing. There is no pitting in bilateral lower extremities. NEUROLOGIC: Grossly nonfocal. LABORATORY DATA: WBC 14.9, hemoglobin 13.3, platelets 96. INR 1.1. PH 7.32, pCO2 43, PO2 82, corresponding to a saturation of 95%. Of note, this was performed on room air. Creatinine 2.08, which is just above his baseline. Basic metabolic profile and liver function studies are otherwise unremarkable. Glucose is running in the low to mid 300s. Lactate 2.3 , ammonia 35. Campylobacter assay is unremarkable. E coli shiga toxin is also negative. IMAGIN. CT of the brain demonstrates no acute intracranial abnormality. There are multiple old infarcts identified. 2. Chest x-ray demonstrates no acute cardiopulmonary abnormality. 3. CTA of the [place] demonstrates severe hemodynamically significant stenosis involving the cavernous and supraclinoid right ICA. 50% luminal caliber narrowing involving the origin of the proximal left ICA. 4. Echocardiogram demonstrates normal ejection fraction. ASSESSMENT: 1. Peripheral vascular disease. 2. Carotid arterial disease, with critical stenosis. 3. Cerebrovascular accident, possible. 4. Obstructive sleep apnea, witnessed at bedside. 5. Metabolic encephalopathy. DISCUSSION AND PLAN: We will allow the patient to permissively be hypertensive given the critical stenosis that he has of the carotid artery. Drop his IV fluids to 75 mL/h. He would benefit from a polysomnogram in the outpatient setting as his respiratory pattern is consistent with fairly significant obstructive sleep apnea. CV surgery consultation should be considered to see whether or not these lesions would be amenable to intervention. Pulmonary/Critical Care will continue to follow along in this location. 70 minutes have been devoted to this patient in various activities. I personally reviewed all imaging studies and laboratory data noted within this document. For fifty percent of this time, I was interacting with the patient at the bedside or coordinating care with the care team. For the remainder of the time I was immediately available to the patient in the hospital unit. Job ID: [id number] [email or web address]
[2019-07-21] MEDS: Sodium Chloride 0.45% 1,000 ML IV SCH ×3 (02:06→22:19)
[2019-07-21] MEDS ORDERED: Piperacillin/Tazobactam 3.375 GM in Sodium Chloride 0.9% 100 ML IVPB SCH ×2 (06:45→14:00)
[2019-07-21] MEDS ORDERED: Dextrose 5% in Water 1,000 ML IV PRN (08:03)
[2019-07-21] MEDS ORDERED: Dextrose 50% Abboject 50 ML SYRINGE SLOW IVP PRN (08:03)
[2019-07-21] MEDS ORDERED: Vancomycin HCl 750 MG in Sodium Chloride 0.9% 250 ML 250 ML IVPB SCH (08:30)
[2019-07-21 08:48] LABS: Hemoglobin 14.2 g/dL (14.0-18.0); Mean Corpuscular HGB CONC 33.4 g/dL (32.0-36.0); Mean Corpuscular Hemoglobin 33.9 pg (27.0-31.0); Mean Platelet Volume 11.1 fL (7.4-10.4); Platelet Count 116 thou/uL (130-400); RBC Distribution Width 13.2 % (11.5-14.5); Red Blood Cell (RBC) Count 4.19 mill/uL (4.70-6.10); White Blood Cell (WBC) Count 23.5 thou/uL (4.8-10.8)
[2019-07-21 09:03] LABS: Anion Gap 18 mmol/L (10-20); BUN (Urea Nitrogen) 54 mg/dL (8.4-25.7); Calc. Creatinine Clearance 25 mL/min (70-130); Calcium 9.1 mg/dL (7.8-10.44); Carbon Dioxide 20 mmol/L (23-31); Chloride 103 mmol/L (98-107); Estimated GFR-MDRD 33; Glucose 284 mg/dL (83-110); Potassium 4.3 mmol/L (3.5-5.1); Sodium 137 mmol/L (136-145)
[2019-07-21] MEDS: Enoxaparin Sodium 30 MG/0.3 ML SYRINGE SC SCH (09:32)
[2019-07-21] MEDS: Aspirin 300 MG Suppository PR SCH (09:33)
[2019-07-21] MEDS: cefTRIAXone\\ROCEPHIN 1 GM in Sodium Chloride 0.9% 100 ML IVPB SCH (09:33)
[2019-07-21 09:35] LABS: Band 6 % (5-11); Lymphocytes 4 % (21-51); MDiff Complete? YES; Monocytes 11 % (0-10); Neutrophil 78 % (42-75); Platelet Morphology Comment Appears Decreased; RBC Morphology Normal; Reactive Lymphocytes 1 % (0-10)
--- NOTE | 2019-07-21 09:52 | PDOC.HOSPP ---
- Subjective Encounter Date: 07/21/19 Encounter Time: 09:51 Subjective: Mr. Wright was seen today in follow-up of Stroke like symptoms, and respiratory failure. Heis clinically improved per staff, but continues to need a high blood pressure is order for MERCHANDISING DIRECTOR perfusion. - Objective Vital Signs & Weight: Vital Signs (12 hours) Temp Pulse Resp Pulse Ox 07/21/19 08:00 96.6 F L 100 07/21/19 07:00 100 07/21/19 03:15 97.4 F L 07/21/19 02:08 73 12 100 07/21/19 00:00 97.8 F 07/20/19 22:01 80 24 H 100 Weight Admit Weight 119 lb 3.2 oz Weight 119 lb 3.2 oz Most Recent Monitor Data Heart Rate from ECG 93 NIBP 162/96 NIBP BP-Mean 118 Respiration from ECG 14 SpO2 100 I&O: 07/20/19 07/21/19 07/22/19 06:59 06:59 06:59 Intake Total 1200 Balance 1200 Result Diagrams: 07/21/19 08:32 07/21/19 08:32 Additional Labs: Accuchecks 07/21/19 07/21/19 07/20/19 06:04 00:05 12:15 POC Glucose 246 H 265 H 305 H Hospitalist ROS - Medication Medications: Active Medications Generic Name Dose Route Start Last Admin Trade Name Freq PRN Reason Stop Dose Admin Aspirin 300 mg 07/20/19 09:00 07/21/19 09:33 Aspirin WI 300 mg DAILY POPEYE Administration Enoxaparin Sodium 30 mg 07/20/19 09:00 07/21/19 09:32 Lovenox SC 30 mg 0900 POPEYE Administration Hydralazine HCl 10 mg 07/19/19 11:57 07/19/19 21:58 Apresoline SLOW IVP 10 mg Q4H PRN Administration BP > 220/110 Sodium Chloride 1,000 mls @ 100 mls/hr 07/19/19 12:00 07/21/19 06:34 1/2 Normal Saline IV 1,000 mls .Q10H POPEYE Administration Ceftriaxone Sodium 1 gm/ 100 mls @ 200 mls/hr 07/21/19 09:00 07/21/19 09:33 Sodium Chloride IVPB 100 mls 0900 POPEYE Administration Vancomycin HCl 750 mg/ Sodium 250 mls @ 250 mls/hr 07/21/19 08:30 07/21/19 09 :33 Chloride IVPB 07/21/19 10:30 250 mls NOW POPEYE Administration Insulin Human Lispro 0 units 07/19/19 11:57 07/20/19 00:16 Humalog SC 4 unit .BEDTIME SLIDING SC PRN Administration Bedtime Correctional Scale Rosuvastatin Calcium 20 mg 07/19/19 21:00 07/20/19 22:09 Crestor PO Not Given HS POPEYE Sertraline HCl 50 mg 07/20/19 09:00 07/21/19 08:25 Zoloft PO Not Given QAM POPEYE - Exam Eye: PERRL Heart: RRR, no murmur, no gallops, no rubs, normal peripheral pulses Respiratory: CTAB, no wheezes, no rales, no ronchi, normal chest expansion, no tachypnea, normal percussion Gastrointestinal: soft, non-tender, non-distended, normal bowel sounds, no palpable masses, no hepatomegaly Hosp A/P (1) Hypertension Code(s): I10 - ESSENTIAL (PRIMARY) HYPERTENSION Status: Chronic Qualifiers: Hypertension type: essential hypertension Qualified Code(s): I10 - Essential (primary) hypertension (2) Diabetes mellitus type 2 in nonobese Code(s): E11.9 - TYPE 2 DIABETES MELLITUS WITHOUT COMPLICATIONS Status: Acute (3) Cerebral vascular disease Code(s): I67.9 - CEREBROVASCULAR DISEASE, UNSPECIFIED Status: Acute (4) Chronic kidney disease, stage 3 Code(s): N18.3 - CHRONIC KIDNEY DISEASE, STAGE 3 (MODERATE) Status: Chronic - Plan * Cerebral Vascular disease- awaiting CTA of the neck, and MRI of the brain * Continue to allow permissive hypertension * Chronic kidney disease- stable * Nutrition support- he will have a Speech Evaluation today- if he is not cleared for a diet, will need to consider alternative means of nutrition * Empiric Antibiotic Coverage? * DVT and GI Prophylaxis
--- NOTE | 2019-07-21 10:34 | PRG ---
DATE OF SERVICE: 07/21/2019 SUBJECTIVE: Patient was seen and examined at bedside and overnight events noted. Patient denies any shortness of breath or chest pain or palpitation. No history of nausea or vomiting or diarrhea or fever or chills or cramps. OBJECTIVE: GENERAL: This is a well-built male, slightly confused, in no acute distress. VITAL SIGNS: Temperature 96.6. Heart rate 93. Respiratory rate 14. Blood pressure 160/96. HEENT: Atraumatic, normocephalic. Oral mucosa is moist NECK: Supple. CARDIOVASCULAR: S1, S2 heard. Rate and rhythm regular. RESPIRATORY: Clear to auscultation. GASTROINTESTINAL: Abdomen is soft. MUSCULOSKELETAL: No tenderness. No edema. DERMATOLOGIC: No skin rash. NEUROLOGIC: Confused. PSYCHIATRIC: Mood and affect normal. LABORATORY DATA: Hemoglobin 14.2. Potassium 4.3, BUN is 54, and creatinine is 1.9. ASSESSMENT AND PLAN: 1. Acute kidney injury on chronic kidney stage 3. Renal function is stable. Creatinine is actually better. BUN elevated. 2. Azotemia with elevated BUN, most likely secondary to steroids. 3. Anemia. 4. History of hypertension. 5. Edema. 6. History of CVA. 7. Altered mentation. Renal function is stable. I will continue to follow. Avoid nephrotoxins. Job ID: [id number]
--- NOTE | 2019-07-21 14:09 | PRG ---
DATE OF SERVICE: 07/21/2019 SERVICE: Pulmonary Medicine. INTERVAL HISTORY: The patient is doing really well from respiratory standpoint. Mentation almonte, he is actually quite a bit improved today. He remains somnolent, when you wake him up, he is following commands much more easily. He requires a lot less stimulation, or motivation to do so. Otherwise, there has been no interval change to his condition. PHYSICAL EXAMINATION: VITAL SIGNS: Afebrile, pulse 73, blood pressure 186/96, respirations 14, saturation 98% on room air. GENERAL: The patient is awake and alert, in no apparent distress. LUNGS: Decent air entry. No prolonged expiratory phase or wheezing is appreciated. HEART: Normal rate. Regular. ABDOMEN: Soft, nontender, and nondistended. Bowel sounds are positive. MUSCULOSKELETAL: No cyanosis or clubbing. No pitting in the bilateral lower extremities. NEUROLOGIC: Grossly nonfocal. LABORATORY DATA: WBC 23.5, hemoglobin 14.2 and stable, platelets 116,000 and gently uptrending. Creatinine 1.97, which is below baseline. BUN 54. Basic metabolic profile is otherwise unremarkable. One out of two blood cultures is growing coag-negative Staph. Urine cultures negative to date. Stool studies are unremarkable. ASSESSMENT: 1. Obstructive sleep apnea, quite severe, witnessed at bedside. 2. Peripheral vascular disease. 3. Carotid arterial disease with critical stenoses. 4. Cerebrovascular accident, possible. 5. Metabolic encephalopathy, resolved. DISCUSSION AND PLAN: The patient is doing really quite well from respiratory standpoint. He would benefit from an outpatient polysomnogram. We can obviously give him breaks off from the CPAP whenever he is awake. It would be reasonable to send to the floor, but if he starts having some these respiratory events there, I do think that people are going to get antsy and he might wind up back in the unit. As such, leaving him in the IMCU for the time being would be reasonable. Pulmonary will follow intermittently during the hospital stay. If he gets into respiratory trouble, please give us a phone call. Job ID: [id number]
--- NOTE | 2019-07-21 14:31 | PQF ---
OLIVIA CYR TONI MD [phone] [facility]- B12 [id number] CLINICAL DOCUMENTATION IMPROVEMENT CLARIFICATION FORM: ICD-10 Updated PLEASE DO AN ADDENDUM TO THE PROGRESS NOTE WITH ANY DOCUMENTATION UPDATES OR ADDITIONS AND CARRY THROUGH TO DC SUMMARY. THANK YOU. DATE: 07/21/2019 ATTN:DR. Carley CRUZ Please exercise your independent, professional judgment in responding to the clarification form. Clinical indicators are provided on the bottom of this form for your review. Please check appropriate box(s): [ ] Cerebral Infarction: [ ] Cerebral[ ] Pre-Cerebral [ ] Thrombosis [ ] Embolism [ ] Unspecified occlusion or stenosis [ ] Venous Thrombosis [ ] Other Cerebral Infarction Laterality:[ ] Right[ ] Left[ ] Bilateral [ ] Pre-Cerebral Artery:[ ] Vertebral[ ] Carotid[ ] Other Pre- Cerebral Artery [ ] Cerebral Artery:[ ] Middle[ ] Anterior[ ] Posterior [ ] Cerebellar[ ] Other Cerebral Artery [ ] Unspecified Cerebral Artery [ ] Hemorrhage (non-traumatic): Please specify Artery: [ ] Subarachnoid [ ] Intracerebral [ ] Extradural [ ] Subdural: [ ] Acute [ ] Subacute [ ] Chronic [ ] Cerebral artery occlusion without infarction [ ] TIA [ X ] Other diagnosis __Cerebral Vascular disease [ ] Unable to determine In addition, please specify: Present on Admission (POA): [ X ] Yes [ ] No [ ] Unable to determine For continuity of documentation, please document condition throughout progress notes and discharge summary. Thank You. CLINICAL INDICATORS - SIGNS / SYMPTOMS / LABS / RESULTS AND LOCATION IN EMR 07/19 H&P (MERLIN) IMPRESSION: THE PATIENT WILL BE ADMITTED TO [facility] FOR LIKELY ACUTE CEREBROVASCULAR ACCIDENT WITH LEFT HEMIPLEGIA. 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 07/20 PN (SARAH) A/P: ACUTE ENCEPHALOPATHY, CONCERNING FOR POSSIBLE ACUTE STROKE 07/20 CONSULT ( VALERIA) IMPRESSION: 1). POSSIBLE NEW STROKE WITH INCREASED DYSARTHRIA AND QUESTIONABLE LEFT-SIDED WEAKNESS. 07/20 CONSULT (ALICE) ASSESSMENT: 3). CEREBROVASCULAR ACCIDENT, POSSIBLE 07/21 PN (NANCY) A/P: 3). ACUTE CEREBROVASCULAR DISEASE RISK: HX OF HYPERTENSION, CVA (PN/ VASUDEV) 07/21 DX ACUTE METABOLIC ENCEPHALOPATHY (H&P/JAGADEESHAN) 07/19 TREATMENTS: NEUROLOGY CONSULT ( 07/20) CT BRAIN (07/19) BRAIN MRI ORDERED (07/21) THANK YOU! PATRICIO (This form is maintained as a part of the permanent medical record) 2014 [employer] All Rights Reserved [email or web address] [phone] MTDD
[2019-07-21] MEDS: Lorazepam 2 MG/ML VIAL SLOW IVP PRN (19:57)
[2019-07-21] MEDS: Rosuvastatin 20 MG TAB PO SCH (19:58)
[2019-07-21] MEDS ORDERED: Famotidine/PF 20 mg/2ml Vial SLOW IVP SCH (21:00)
[2019-07-22 08:18] LABS: Vancomycin, Random 6.3 ug/mL (See Comment)
[2019-07-22] MEDS ORDERED: Vancomycin HCl 750 MG in Sodium Chloride 0.9% 250 ML 250 ML IVPB SCH ×2 (08:30→09:00)
--- NOTE | 2019-07-22 10:00 | PRG ---
DATE OF SERVICE: 07/22/2019 SUBJECTIVE: Jason Wright remains encephalopathic. MRI was ordered, but clearly he is not going to tolerate the MRI without being sedated and probably he is going to be intubated. Nurses informed me about the situation and the process of asking the physician whether he really needs an MRI, though the patient is clearly encephalopathic. OBJECTIVE: VITAL SIGNS: Temperature 97, blood pressure 106/60, pulse 80, respiratory rate 18. CHEST: Decreased breath sounds. No wheezing. CARDIAC: Normal S1, S2. No gallops. ABDOMEN: No masses. IMPRESSION: Respiratory failure. No evidence of Staph sepsis, coagulase negative Staph is probably a contamination. Otherwise, I would continue empiric antibiotics, supportive care. If he is able to tolerate MRI, will review the results. Otherwise, continue supportive care. PT. Prognosis remains guarded. Job ID: [id number]
--- NOTE | 2019-07-22 10:26 | PRG ---
DATE OF SERVICE: 07/22/2019 SUBJECTIVE: The patient remains confused and nonverbal. OBJECTIVE: GENERAL: This is a well built male in no acute distress. VITAL SIGNS: Temperature 97.6. Pulse 82. Respiratory rate 14. Blood pressure 176/90 HEENT: Atraumatic, normocephalic. Oral mucosa is moist NECK: Supple. CARDIOVASCULAR: S1, S2 heard. Rate and rhythm regular. RESPIRATORY: Clear to auscultation. GASTROINTESTINAL: Abdomen is soft. MUSCULOSKELETAL: No tenderness. No edema. DERMATOLOGIC: No skin rash. NEUROLOGIC: Confused. LABORATORY DATA: Labs were pending today. ASSESSMENT AND PLAN: 1. Acute kidney injury on chronic kidney disease stage 3. Renal function will be monitored and altered mentation. 2. History of hypertension. 3. Azotemia after dialysis. 4. History of hypertension. 5. Altered mentation 6. Edema, controlled. 7. Prognosis guarded. We will continue to follow. Continue to monitor. Recheck labs. Discussed with bedside nurse. Job ID: [id number] MTDD
[2019-07-22] MEDS: Sodium Chloride 0.45% 1,000 ML IV SCH ×2 (10:44→12:03)
[2019-07-22] MEDS: cefTRIAXone\\ROCEPHIN 1 GM in Sodium Chloride 0.9% 100 ML IVPB SCH (10:44)
[2019-07-22] MEDS ORDERED: diphenhydrAMINE 50 MG/ML VIAL IVP SCH (11:00)
--- NOTE | 2019-07-22 11:04 | RAD ---
Exam: Chest one view HISTORY:Leukocytosis Comparison: 07/19/2019 FINDINGS: Cardiac silhouette: Normal Aorta: Unremarkable Pulmonary vessels: Normal Costophrenic angles: Clear LUNGS: No masses or consolidation. Pneumothorax: None Osseous abnormalities: None IMPRESSION: No acute cardiopulmonary process.
--- NOTE | 2019-07-22 11:25 | PDOC.HOSPP ---
- Subjective Encounter Date: 07/22/19 Encounter Time: 11:24 Subjective: Mr. Wright was seen today in follow-up of metabolic encephalopathy. His family seems to believe he is doing better. He will follow some commands, but his speech is unintelligible. I suspect due to his enlarged tongue. - Objective Vital Signs & Weight: Vital Signs (12 hours) Temp Pulse Resp BP Pulse Ox 07/22/19 08:00 98 07/22/19 07:23 97.6 F 07/22/19 06:03 176/90 H 07/22/19 04:00 97.6 F 07/22/19 02:06 86 20 100 07/22/19 00:33 95 07/22/19 00:00 98.0 F 07/21/19 23:54 80 21 H 100 Weight Admit Weight 119 lb 3.2 oz Weight 124 lb 4 oz Most Recent Monitor Data Heart Rate from ECG 81 NIBP 191/98 NIBP BP-Mean 129 Respiration from ECG 13 SpO2 99 I&O: 07/21/19 07/22/19 07/23/19 06:59 06:59 06:59 Intake Total 1200 1205 Balance 1200 1205 Result Diagrams: 07/21/19 08:32 07/21/19 08:32 Additional Labs: Accuchecks 07/22/19 07/21/19 07/21/19 05:22 23:52 18:06 POC Glucose 150 H 161 H 183 H 07/21/19 12:06 POC Glucose 275 H Hospitalist ROS - Medication Medications: Active Medications Generic Name Dose Route Start Last Admin Trade Name Freq PRN Reason Stop Dose Admin Aspirin 300 mg 07/20/19 09:00 07/21/19 09:33 Aspirin TN 300 mg DAILY POPEYE Administration Enoxaparin Sodium 30 mg 07/20/19 09:00 07/21/19 09:32 Lovenox SC 30 mg 0900 POPEYE Administration Hydralazine HCl 10 mg 07/19/19 11:57 07/19/19 21:58 Apresoline SLOW IVP 10 mg Q4H PRN Administration BP > 220/110 Insulin Human Lispro 0 units 07/19/19 11:57 07/20/19 00:16 Humalog SC 4 unit .BEDTIME SLIDING SC PRN Administration Bedtime Correctional Scale Lorazepam 0.5 mg 07/20/19 12:48 07/21/19 19:57 Ativan SLOW IVP 0.5 mg Q6H PRN Administration Anxiety/Agitation Rosuvastatin Calcium 20 mg 07/19/19 21:00 07/21/19 19:58 Crestor PO Not Given HS POPEYE Sertraline HCl 50 mg 07/20/19 09:00 07/22/19 10:44 Zoloft PO Not Given QAM POPEYE - Exam Eye: PERRL, anicteric sclera ENT: no oropharyngeal lesions (+ enlarged tongue, but uvula is midline, no stridor) Heart: RRR, no murmur, no gallops, no rubs, normal peripheral pulses Respiratory: CTAB, no wheezes, no rales, no ronchi, normal chest expansion Gastrointestinal: soft, non-distended, normal bowel sounds Extremities: no cyanosis, no clubbing, no edema Hosp A/P (1) Hypertension Code(s): I10 - ESSENTIAL (PRIMARY) HYPERTENSION Status: Chronic Qualifiers: Hypertension type: essential hypertension Qualified Code(s): I10 - Essential (primary) hypertension (2) Diabetes mellitus type 2 in nonobese Code(s): E11.9 - TYPE 2 DIABETES MELLITUS WITHOUT COMPLICATIONS Status: Acute (3) Cerebral vascular disease Code(s): I67.9 - CEREBROVASCULAR DISEASE, UNSPECIFIED Status: Acute (4) Chronic kidney disease, stage 3 Code(s): N18.3 - CHRONIC KIDNEY DISEASE, STAGE 3 (MODERATE) Status: Chronic (5) Metabolic encephalopathy Code(s): G93.41 - METABOLIC ENCEPHALOPATHY Status: Acute - Plan * Metabolic encephalopathy- ? etiology- this may be due to infection, or possibly related to sleep deprivation, and sleep apnea- according to family it is improving. He does not appear to have any focal deficits. 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 His was aware of the severe cerebral vascular disease in the internal carotids. This is not a new finding. Discussed with CV surgery, and if this area is not symptomatic, it would not be worth the risk trying to perform a procedure to correct this. * HTN- will need to titrate his blood pressure down, while avoiding decreased perfusion * Nutrition- he has not had significant nutrition in a few days- will start PPN - he was having difficulty with his swallowing even before admission to the hospital- and he did not do well on the swallowing evaluation- will consult GI to evaluate for PEG tube placement * Chronic kidney disease- stable * Leukocytosis- ? etiology- CXR did not show significant change- will broaden his antibiotic coverage and await culture results * Glossitis-? etiology- could this be idiopathic angioedema- will continue Benadryl, and re-assess * DVT and GI Prophylaxis
[2019-07-22] MEDS ORDERED: cloNIDine 0.1mg/24 Hour PATCH TD SCH (11:33)
[2019-07-22] MEDS: Aspirin 300 MG Suppository PR SCH (12:02)
[2019-07-22] MEDS: Enoxaparin Sodium 30 MG/0.3 ML SYRINGE SC SCH (12:03)
[2019-07-22] MEDS: D5W-AA 4.25% with LYTES 1,000 ML BAG IV SCH (12:03)
[2019-07-22] MEDS: Lorazepam 2 MG/ML VIAL SLOW IVP PRN ×2 (13:12→20:43)
[2019-07-22] MEDS: hydrALAZINE 20 MG/ML VIAL SLOW IVP PRN (14:33)
[2019-07-22] MEDS: Piperacillin/Tazobactam 2.25 GM in Sodium Chloride 0.9% 100 ML IVPB SCH ×2 (14:33→23:04)
--- NOTE | 2019-07-22 16:17 | CON ---
DATE OF CONSULTATION: 07/22/2019 REASON FOR CONSULTATION: Dysphagia, possible PEG tube placement. CONSULTING PROVIDER: Memo Cummings MD HISTORY OF PRESENT ILLNESS: The patient is a 74-year-old male with past medical history of multiple prior cerebrovascular accidents, chronic dysphagia, diabetes, coronary artery disease status post CABG, osteomyelitis with toe amputations, chronic kidney disease stage 3, GERD, and severe obstructive sleep apnea, presenting with recurrent cerebrovascular accident. The patient was initially admitted to the hospital with presenting symptoms including increasing dysarthria and left-sided weakness suspicious for recurrent stroke (of note, the majority of this information was obtained through chart review due to no family members at bedside and the noninteractivity of the patient). Per chart review, the patient was exhibiting altered mental status and left-sided weakness and inability to maintain a seated position at home. At which point, EMS was subsequently called and brought to [facility] for further evaluation. In the ER, the patient was noted to have significant agitation and given Haldol and Ativan in order to calm the patient down. On admission, he was also noted to have a significantly elevated blood pressure of approximately 204/90 that responded to hydralazine IV. On clinical evaluation, the patient was noted to have dense hemiplegia on the left side as well as possible disabling signs of the left upper extremity. He ultimately underwent a CT scan, which showed no evidence of an acute process, but had evidence of old prior strokes in the left thalamus and left brainstem area. During the course of this admission, the patient has exhibited significant somnolence and when he does sleep, display significant oxygen desaturation requiring the use of BiPAP that is being attributed to severe obstructive sleep apnea. He has also required additional doses of Ativan during this hospitalization for increased agitation and disorientation. However, per chart review, there also seems to be moments of lucidity with the patient was able to follow simple commands and interact with hospital staff and family, albeit in a limited fashion due to his dysarthria. However, he has not been able to maintain adequate nutrition during the course of this hospitalization due to his inability to engage in purposeful movements in order to be eat and has displayed a metabolic encephalopathy since admission with waxing and waning sensorium. He was also being evaluated as an outpatient for this dysphagia with a modified barium swallow said to be performed today that he was admitted to the hospital. Speech Pathology yesterday came to the patient for evaluation, but could not evaluate the patient due to his encephalopathy at this time. He is currently on PPN for nutritional purposes. At this time, the patient had recently given Ativan at the time of my evaluation and the patient was somnolent and inability to follow any simple commands or questioning. He did display some agitation characterized as attempting to remove his BiPAP mask, remove bed sheets, and pushing healthcare staff away when being manipulated. REVIEW OF SYSTEMS: A 10 category review of systems could not be obtained due to the patient's altered mental status. PAST MEDICAL HISTORY: As per HPI. PAST SURGICAL HISTORY: Anterior cervical diskectomy in August 2018, coronary artery bypass graft, what sounds like ray amputations of the right foot, and laser eye surgery. FAMILY HISTORY: No mention of any GI malignancies in the chart. SOCIAL HISTORY: No mention of tobacco, alcohol, or illicit drug use as an outpatient. OUTPATIENT MEDICATIONS: Reviewed. ALLERGIES: VICODIN. PHYSICAL EXAMINATION: VITAL SIGNS: Temperature 97.4, pulse 82, blood pressure 190/98, respiratory rate 17, and saturating 100% on BiPAP. GENERAL: The patient was lying in bed, in no acute distress. The patient was not alert or interactive with both verbal and noxious stimuli. However, he did display increased agitation with noxious stimuli and withdrawal from pain. HEENT: Normocephalic and atraumatic. No JVD or scleral icterus noted. NECK: Supple. CARDIOVASCULAR: Regular rate and rhythm with no discernible murmurs, gallops, or rubs. RESPIRATORY: Coarse breath sound heard in all lung bear consistent with mechanical ventilation with BiPAP. ABDOMEN: Normoactive bowel sounds. Soft, nontender, and nondistended. EXTREMITIES: No cyanosis, clubbing, or edema. Amputations noted on the right foot. LABORATORY DATA: Most recent labs were from July 21, 2019, showing a white blood cell count of 23.5, hemoglobin 14.2, hematocrit 42.5, and platelets 116. Chemistry with a sodium of 137, potassium 4.3, chloride 103, CO2 of 20, BUN 54, creatinine 1.97, and glucose 284. IMAGING DATA: CT of the head obtained on July 19, 2019, with angiography showed a suspected severe stenosis involving the cavernous and supraclinoid right ICA, intracerebral artery. There was also 33% caliber narrowing involving the proximal cervical right intracerebral artery just distal to the right carotid bulb, 50% luminal caliber narrowing involving the origin and proximal left cervical ICA was also noted. There was significant stenosis also seen, that was [id number] at the level of the left cavernous ICA due to severe calcified atherosclerotic plaque. ASSESSMENT AND PLAN: The patient is a 74-year-old male with past medical history of multiple prior cerebrovascular accidents with significant cerebrovascular disease seen on CT, diabetes, coronary artery disease status post coronary artery bypass grafting, osteomyelitis with toe amputations, chronic kidney disease stage 3, gastroesophageal reflux disease, and dysphagia that has been present since his diskectomy in August 2018, presenting with probable recurrent cerebrovascular accident and resultant dysphagia and altered mental status. Dysphagia: Per chart review, the patient has had recurrent episodes of cerebrovascular accident resulting in left hemiplegia and now presenting with again altered mental status and weakness consistent with a repeat episode of significant cerebrovascular disease. However, the patient was also exhibiting increasing dysphagia that had been present prior to this admission with plans for a modified barium swallow on the day that he was actually admitted to the hospital. At this time, the patient is not able to follow any commands, so a speech pathology evaluation would be futile and most likely display negative results. However, there is also mention in the chart where the patient does have periods of lucidity and is able to follow commands and able to speak to family members and staff, albeit with a dysarthric voice quality. However, further complicating this is significant obstructive sleep apnea that requires the use of BiPAP in order to maintain adequate oxygenation when the patient falls asleep (which is often). Given the recent onset of his metabolic encephalopathy and the continued use of sedation medications for agitation, both of these could potentially contribute to his current clinical situation and affect the ability to accurately assess his swallowing ability. However, the patient is also high risk for any sort of procedure secondary to his severe sleep apnea and if undergoes endoscopic evaluation with percutaneous gastrostomy tube placement may have prolonged placement on mechanical ventilation afterwards. He is currently receiving PPN, which is inadequate for maintaining nutrition in the long-term, but may be amenable to Dobbhoff placement and enteric feeds via that route while the patient's metabolic encephalopathy improves. Recommendations; 1. Would recommend placement of a Dobbhoff tube with enteric feeds administered through that for continued nutritional purpose and allow time for the patient to respond to other treatments. 2. Would attempt to hold any sedative medications that might further contribute to his altered mental status. 3. If the patient's mental status does improve to the point, where he would be able to follow commands, we would then recommend a modified barium swallow for further evaluation of his dysphagia and to what extent is manifested. 4. Would confer with family about current goals of care prior to high risk invasive procedures including esophagogastroduodenoscopy with percutaneous endoscopic gastrostomy tube placement. 5. If the patient does not exhibit any change in his altered mental status and is not able to sufficiently maintain adequate nutrition or shows signs of aspiration, then percutaneous endoscopic gastrostomy tube placement could be considered. Although in this patient, it would most likely not improve longevity or quality of life. We will continue to follow. Please call with any questions. Job ID: [id number]
--- NOTE | 2019-07-22 20:01 | RAD ---
Abdomen one view: HISTORY: Dobbhoff tube placement FINDINGS: There is a feeding tube with tip in the distal stomach. The bowel gas pattern is unremarkable.
[2019-07-22] MEDS: Famotidine/PF 20 mg/2ml Vial SLOW IVP SCH (20:43)
[2019-07-22] MEDS: Rosuvastatin 20 MG TAB PO SCH (21:01)
[2019-07-22] MEDS: Haloperidol Lactate 5 MG/ML VIAL SLOW IVP PRN (22:46)
[2019-07-23] MEDS: Lorazepam 2 MG/ML VIAL SLOW IVP PRN (02:42)
[2019-07-23 03:34] LABS: #Eosinphils 0.1 thou/uL (0.0-0.7); #Lymphocytes 0.4 thou/uL (1.20-3.40); #Monocytes 0.8 thou/uL (0.11-0.59); #Neutrophils 8.3 thou/uL (1.40-6.50); %Basophils 0.1 % (0.0-1.0); %Eosinophils 0.5 % (0.0-10.0); %Lymphocytes 4.5 % (21.0-51.0); %Monocytes 8.4 % (0.0-10.0); %Neutrophils 86.5 % (42.0-75.0); Mean Corpuscular HGB CONC 33.1 g/dL (32.0-36.0); Mean Corpuscular Hemoglobin 33.3 pg (27.0-31.0); Mean Platelet Volume 11.2 fL (7.4-10.4); Platelet Count 90 thou/uL (130-400); RBC Distribution Width 12.9 % (11.5-14.5); Red Blood Cell (RBC) Count 3.89 mill/uL (4.70-6.10); White Blood Cell (WBC) Count 9.6 thou/uL (4.8-10.8)
[2019-07-23 03:55] LABS: Anion Gap 16 mmol/L (10-20); BUN (Urea Nitrogen) 51 mg/dL (8.4-25.7); Calc. Creatinine Clearance 31 mL/min (70-130); Calcium 8.7 mg/dL (7.8-10.44); Carbon Dioxide 18 mmol/L (23-31); Chloride 107 mmol/L (98-107); Estimated GFR-MDRD 41; Glucose 259 mg/dL (83-110); Potassium 4.2 mmol/L (3.5-5.1); Sodium 137 mmol/L (136-145)
[2019-07-23] MEDS: Haloperidol Lactate 5 MG/ML VIAL SLOW IVP PRN (04:03)
[2019-07-23] MEDS ORDERED: Lorazepam 2 MG/ML VIAL SLOW IVP SCH ×2 (04:30→09:00)
[2019-07-23] MEDS: Piperacillin/Tazobactam 2.25 GM in Sodium Chloride 0.9% 100 ML IVPB SCH ×2 (06:03→15:13)
--- NOTE | 2019-07-23 08:35 | PRG ---
DATE OF SERVICE: 07/23/2019 SUBJECTIVE: The patient was seen and examined at the bedside and remains nonverbal and altered mentation. He is on BiPAP. OBJECTIVE: GENERAL: This is a well-built male, confused. VITAL SIGNS: Temperature 97.0, pulse 77, respiratory rate 20, and blood pressure 120/68. HEENT: Atraumatic. NECK: Supple. CARDIOVASCULAR: S1 and S2 heard. RESPIRATORY: Clear anteriorly. GASTROINTESTINAL: Abdomen is soft. MUSCULOSKELETAL: No edema. DERMATOLOGIC: No skin rash. NEUROLOGIC: Confused. LABORATORY DATA: Potassium 4.2, BUN is 51, and creatinine is 1.6. ASSESSMENT AND PLAN: 1. Acute kidney injury on chronic kidney disease, stage 3, stable. 2. History of azotemia, stable. 3. Hypertension. 4. Edema, controlled. Labs are stable. From renal standpoint, we will follow. Job ID: [id number]
[2019-07-23] MEDS: Aspirin 300 MG Suppository PR SCH (08:53)
[2019-07-23] MEDS: Enoxaparin Sodium 30 MG/0.3 ML SYRINGE SC SCH (09:00)
[2019-07-23] MEDS: D5W-AA 4.25% with LYTES 1,000 ML BAG IV SCH (09:33)
--- NOTE | 2019-07-23 10:33 | PDOC.HOSPP ---
- Subjective Encounter Date: 07/23/19 Encounter Time: 10:31 Subjective: Mr. Wright was seen today in follow-up of encephalopathy. He has not improved significantly overnight. - Objective Vital Signs & Weight: Vital Signs (12 hours) Temp Pulse Resp Pulse Ox 07/23/19 07:58 100 07/23/19 07:05 97.0 F L 07/23/19 04:00 97.0 F L 07/23/19 01:39 85 16 100 07/23/19 00:00 97.9 F Weight Admit Weight 119 lb 3.2 oz Weight 122 lb 4 oz Most Recent Monitor Data Heart Rate from ECG 73 NIBP 168/66 NIBP BP-Mean 100 Respiration from ECG 17 SpO2 100 I&O: 07/22/19 07/23/19 07/24/19 06:59 06:59 06:59 Intake Total 1205 1000 Balance 1205 1000 Result Diagrams: 07/23/19 03:20 07/23/19 03:20 Additional Labs: Accuchecks 07/23/19 07/23/19 07/22/19 05:44 00:10 18:06 POC Glucose 235 H 234 H 211 H 07/22/19 12:11 POC Glucose 149 H Hospitalist ROS - Medication Medications: Active Medications Generic Name Dose Route Start Last Admin Trade Name Freq PRN Reason Stop Dose Admin Amino Acids/Electrolytes/Dextrose 1,000 ml 07/22/19 10:45 07/23/19 09:33 Clinimix E 4.25/5 IV 1,000 ml INF POPEYE Administration Aspirin 300 mg 07/20/19 09:00 07/23/19 08:53 Aspirin [place] 300 mg DAILY POPEYE Administration Clonidine 0.1 mg 07/22/19 11:33 07/22/19 12:03 [id number] Patch TD 0.1 mg Q7DAYS POPEYE Administration Enoxaparin Sodium 30 mg 07/20/19 09:00 07/23/19 09:00 Lovenox SC 30 mg 0900 POPEYE Administration Famotidine 20 mg 07/22/19 21:00 07/22/19 20:43 Pepcid SLOW IVP 20 mg 2100 POPEYE Administration Haloperidol Lactate 2 mg 07/22/19 11:36 07/23/19 04:03 Haldol SLOW IVP 2 mg Q4H PRN Administration Agitation Hydralazine HCl 10 mg 07/22/19 11:34 07/22/19 14:33 Apresoline SLOW IVP 10 mg Q4H PRN Administration SBP Greater Than 180 Piperacillin Sod/Tazobactam 100 mls @ 200 mls/hr 07/22/19 15:00 07/23/19 06: 03 Sod 2.25 gm/ Sodium Chloride IVPB 100 mls 0700,1500,2300 POPEYE Administration Sodium Chloride 1,000 mls @ 50 mls/hr 07/22/19 10:41 07/22/19 12:03 1/2 Normal Saline IV 1,000 mls .Q20H POPEYE Administration Insulin Human Lispro 0 units 07/19/19 11:57 07/20/19 00:16 Humalog SC 4 unit .BEDTIME SLIDING SC PRN Administration Bedtime Correctional Scale Lorazepam 0.5 mg 07/20/19 12:48 07/23/19 02:42 Ativan SLOW IVP 0.5 mg Q6H PRN Administration Anxiety/Agitation Lorazepam 1 mg 07/23/19 09:00 07/23/19 09:00 Ativan SLOW IVP 1 mg Q4HR POPEYE Administration Rosuvastatin Calcium 20 mg 07/19/19 21:00 07/22/19 21:01 Crestor PO Not Given HS POPEYE Sertraline HCl 50 mg 07/20/19 09:00 07/23/19 07:06 Zoloft PO Not Given QAM POPEYE - Exam Eye: PERRL ENT: dry oral mucosa (with enlarged tongue) Heart: RRR, no murmur, no gallops, no rubs, normal peripheral pulses Respiratory: CTAB, no wheezes, no rales, no ronchi, normal chest expansion Gastrointestinal: soft, non-distended, normal bowel sounds Extremities: no cyanosis, no edema Hosp A/P (1) Hypertension Code(s): I10 - ESSENTIAL (PRIMARY) HYPERTENSION Status: Chronic Qualifiers: Hypertension type: essential hypertension Qualified Code(s): I10 - Essential (primary) hypertension (2) Diabetes mellitus type 2 in nonobese Code(s): E11.9 - TYPE 2 DIABETES MELLITUS WITHOUT COMPLICATIONS Status: Acute (3) Cerebral vascular disease Code(s): I67.9 - CEREBROVASCULAR DISEASE, UNSPECIFIED Status: Acute (4) Chronic kidney disease, stage 3 Code(s): N18.3 - CHRONIC KIDNEY DISEASE, STAGE 3 (MODERATE) Status: Chronic (5) Metabolic encephalopathy Code(s): G93.41 - METABOLIC ENCEPHALOPATHY Status: Acute - Plan * Metabolic encephalopathy- ? etiology- he had improved some, but the improvement has plateaued- will continue to observe * Cerebral Vascular disease- stable * HTN- will continue the Catapres patch, and PRN medications- the parameters have been lowered * Nutrition- GI input appreciated- will hold off on PEG tube placement- and give a trail of DHT feeding * Chronic kidney disease- stable * Leukocytosis- improved- will continue the current antibiotics- CXR was negative, and cultures are negative as well * Glossitis- will continue Benadryl, and give a dose of steroids to see if this will help. It does not have the appearance of nutritional deficiency such as B12 or folic acid, as the papilla are prominent and not atrophic. Can add vitamin supplements once he is tolerating tube feeds * Respiratory failure- not sure if this is related to central sleep apnea, or the enlarged tongue- will defer to PCCM * DVT and GI Prophylaxis
[2019-07-23] MEDS ORDERED: methylPREDNISolone Sod Succ 40 MG VIAL IVP SCH (10:45)
--- NOTE | 2019-07-23 11:41 | PRG ---
DATE OF SERVICE: 07/23/2019 SUBJECTIVE: Jason Wright this morning still remains encephalopathic. He had been on BiPAP for 4 days. Every time they decreased the BiPAP, his sats decreased to 85%. Mouth is open. OBJECTIVE: VITAL SIGNS: Blood pressure 168/66, pulse 102, respiratory rate 18, and afebrile. CHEST: Decreased breath sounds. No wheezing. CARDIAC: Normal S1 and S2. No gallops. ABDOMEN: No masses. LABORATORY DATA: Creatinine 1.64. White count 9000, platelet count is 90,000. IMPRESSION: Encephalopathy, respiratory failure. PLAN: Avoid any kind of sedation if possible. We are going to try high-flow. If not, he is going to probably require trach done since his respiratory status is still very compromised. We will follow. Job ID: [id number]
[2019-07-23] MEDS ORDERED: Lorazepam 2 MG/ML VIAL SLOW IVP PRN ×2 (11:50→12:43)
[2019-07-23 12:00] LABS: Free T4 (Free Thyroxine) 1.26 ng/dL (0.70-1.48); Thyroid Stimulating Hormone 1.2859 uIU/mL (0.35-4.94)
[2019-07-23] MEDS ORDERED: diphenhydrAMINE 50 MG/ML VIAL IVP SCH (12:00)
--- NOTE | 2019-07-23 15:01 | PRG ---
DATE OF SERVICE: 07/23/2019 REASON FOR CONSULTATION: Dysphagia, possible PEG tube placement. SUBJECTIVE: The patient continues to have altered mental status with his encephalopathy with no significant change within the last 24 hours. A Dobhoff tube was placed within that time and he has been tolerating it well thus far with institution of tube feeds earlier this morning. He currently remains on BiPAP for respiratory assistance and attempts to wean him from the BiPAP have been met with minimal success. Currently, he does not respond to verbal or tactile stimuli, but does respond to noxious stimuli. OBJECTIVE: VITAL SIGNS: Temperature 97.7, pulse 68, blood pressure 174/76, respiratory rate 17, saturating 100% on BiPAP. GENERAL: The patient was lying in bed, in no acute distress with some spontaneous limb movement, but nonpurposeful. CARDIOVASCULAR: Regular rate and rhythm with no discernible murmurs, gallops, or rubs (although difficulty here with BiPAP). RESPIRATORY: Coarse breath sounds heard in all lung bear consistent with mechanical ventilation with BiPAP. ABDOMEN: Normoactive bowel sounds. Soft, nontender, nondistended. EXTREMITIES: No cyanosis, clubbing, or edema. Amputations noted on the right foot. LABORATORY DATA: CBC with a white blood cell count of 9.6, hemoglobin 13, hematocrit 39.1, platelets 90. Chemistry with a sodium of 137, potassium 4.2, chloride 107, CO2 of 18, BUN 51, creatinine 1.64, glucose 259. IMAGING DATA: No current GI imaging is available for review. ASSESSMENT AND PLAN: The patient is a 74-year-old male with past medical history of multiple prior cerebrovascular accidents with cerebrovascular disease seen on CT; diabetes; coronary artery disease, status post CABG; osteomyelitis with toe amputations of the right foot; chronic kidney disease stage 3; gastroesophageal reflux disease; and prior dysphagia present since his diskectomy in August 2018; presenting with probable recurrent cerebrovascular accident and resultant dysphagia and altered mental status. 1. Dysphagia. The patient is initially presenting with increased weakness and altered mental status. Ultimately, prompting him to be admitted to the hospital. During the course of this hospitalization thus far, he has not been able to contribute meaningful information to verbal interviewing and has not made any significant improvement within the last 24 to 48 hours. He is currently tolerating a Dobhoff tube for nutritional supplementation and support. However, at the current time, he is unable to maintain adequate nutrition by himself. Given his extremely high oxygen requirements, the endoscopic placement of a percutaneous gastrostomy tube is higher risk for complication and would most likely require prolonged placement on mechanical ventilation afterwards. At this time, outlining the long-term goal to care with family would be prudent prior to any invasive procedures whether be a trach or PEG tube. Recommendations;. a. Would continue with Dobhoff tube and enteric feeds administered through that for nutritional optimization. b. Would attempt to hold any sedating medications that might further contribute to his altered mental status. c. If his mental status does improve, then would consider modified barium swallow for further evaluation of his dysphagia. d. Highly recommend speaking with family about current goals of care if the patient should require placement of a tracheostomy and/or percutaneous gastrostomy tube secondary to vegetative state. If the patient does want to proceed with placing the patient on mechanical ventilation for the long-term, then gastrostomy tube would be considered at that time. However, most likely would not improve the patient's longevity or quality of life. We will continue to follow. Please call with any questions. Job ID: [id number]
--- NOTE | 2019-07-23 19:19 | RAD ---
ONE VIEW ABDOMEN: Comparison: 07-22-19 History: Dobbhoff replacement. FINDINGS: Dobbhoff tube is at the level of the GE junction. Advancement is recommended. IMPRESSION: Dobbhoff feeding tube is at the GE junction. POS: PPP
[2019-07-23] MEDS: Rosuvastatin 20 MG TAB PO SCH (20:50)
[2019-07-23] MEDS: Famotidine/PF 20 mg/2ml Vial SLOW IVP SCH (20:50)
--- NOTE | 2019-07-23 21:29 | RAD ---
1 VIEW ABDOMEN: Date: 07/23/19 COMPARISON: 07/23/19 at 1856 hours. HISTORY: Evaluate Dobbhoff feeding tube. FINDINGS: No significant change in Dobbhoff feeding tube. Part of the tip may be in the gastric cardia and part of the tip may be at the GE junction. IMPRESSION: Dobbhoff feeding tube as above. POS: PPP
[2019-07-24] MEDS: Piperacillin/Tazobactam 2.25 GM in Sodium Chloride 0.9% 100 ML IVPB SCH ×4 (00:13→22:20)
[2019-07-24 06:56] LABS: #Lymphocytes 0.4 thou/uL (1.20-3.40); #Monocytes 0.7 thou/uL (0.11-0.59); #Neutrophils 7.8 thou/uL (1.40-6.50); %Eosinophils 0.2 % (0.0-10.0); %Lymphocytes 4.9 % (21.0-51.0); %Neutrophils 86.9 % (42.0-75.0); Hemoglobin 13.7 g/dL (14.0-18.0); Mean Corpuscular HGB CONC 31.4 g/dL (32.0-36.0); Mean Platelet Volume 11.2 fL (7.4-10.4); Platelet Count 102 thou/uL (130-400); Red Blood Cell (RBC) Count 4.28 mill/uL (4.70-6.10)
[2019-07-24 07:04] LABS: Anion Gap 19 mmol/L (10-20); BUN (Urea Nitrogen) 50 mg/dL (8.4-25.7); Calc. Creatinine Clearance 30 mL/min (70-130); Calcium 9.2 mg/dL (7.8-10.44); Carbon Dioxide 17 mmol/L (23-31); Chloride 108 mmol/L (98-107); Estimated GFR-MDRD 40; Glucose 239 mg/dL (83-110); Potassium 4.6 mmol/L (3.5-5.1); Sodium 139 mmol/L (136-145)
--- NOTE | 2019-07-24 08:35 | RAD ---
SUPINE RADIOGRAPH OF ABDOMEN: DATE: 07/24/2019. COMPARISON: 07/23/2019. HISTORY: Evaluate location of Dobbhoff tube. FINDINGS: Enteric tube is again noted, distal tip overlying the medial left upper quadrant, likely within the r egion of the proximal gastric body of gastric fundus. Midline sternotomy wires are present. The adolfo st and abdomen are only partially imaged on this exam. IMPRESSION: Dobbhoff feeding tube as detailed above. POS: PARUL
[2019-07-24] MEDS: Sodium Chloride 0.45% 1,000 ML IV SCH ×2 (08:51→08:52)
--- NOTE | 2019-07-24 09:46 | PRG ---
DATE OF SERVICE: 07/24/2019 SERVICE: Pulmonary Medicine. INTERVAL HISTORY: The patient is doing outstanding from mentation standpoint. Basically, he is back to baseline. There has been no interval change to his condition otherwise. There are no reports of fevers or chills or other events. PHYSICAL EXAMINATION: VITAL SIGNS: Afebrile, pulse 83, blood pressure 177/86, respirations 14, saturation 100% on room air. GENERAL: The patient was awake and alert. He was a little bit agitated. He has actually removed his Dobhoff tube on 3 separate occasions. Because of this and a little bit of agitation, he got a dose of Ativan. Since then, he has been extra sleepy. HEENT: Normocephalic and atraumatic. Sclerae are white. Conjunctivae are pink. Oral mucosa is moist without lesions. LUNGS: Decent air entry. Rhonchi are present. No prolonged expiratory phase or wheezing is appreciated. HEART: Normal rate, regular. ABDOMEN: Soft, nontender, and nondistended. Bowel sounds are positive. MUSCULOSKELETAL: No cyanosis or clubbing. There is no pitting in the bilateral lower extremities. NEUROLOGIC: Grossly nonfocal at this time. LABORATORY DATA: WBC 9.0, hemoglobin 13.7, platelets 102,000. Creatinine 1.67, which is at his baseline. Basic metabolic profile is otherwise unremarkable. Blood cultures x2 and stool studies are negative. Urine culture is also unremarkable. IMAGING STUDIES: X-ray demonstrates good placement for the enteric catheter. ASSESSMENT: 1. Obstructive sleep apnea, severe. 2. Peripheral vascular disease. 3. Carotid arterial disease with critical stenoses. 4. Encephalopathy secondary to medications. DISCUSSION AND PLAN: I will minimize the dose of Ativan. We will continue our discussions with the family regarding goals of care. Critical Care will follow in this location, but truth be told, he really does not have much respiratory failure unless he starts obstructing. I would still recommend using the noninvasive ventilation when the patient is sleeping. He will remain in the [facility] for the time being. Job ID: [id number] MTDD
[2019-07-24] MEDS: hydrALAZINE 20 MG/ML VIAL SLOW IVP PRN (09:49)
[2019-07-24] MEDS: Enoxaparin Sodium 30 MG/0.3 ML SYRINGE SC SCH (09:52)
[2019-07-24] MEDS: Aspirin 300 MG Suppository PR SCH (09:52)
--- NOTE | 2019-07-24 11:45 | PRG ---
DATE OF SERVICE: 07/24/2019 SUBJECTIVE: A 74-year-old male being seen for acute kidney injury. The patient denied nausea, vomiting, or chest pain. OBJECTIVE: CONSTITUTIONAL: The patient is resting. VITAL SIGNS: Afebrile, pulse 83, breathing 16, and blood pressure 177/86. GENERAL APPEARANCE AND MENTAL STATUS: Fair. HEAD/NECK: Normocephalic. Atraumatic. EYES: EOMI. No deformity. EARS: Clear. No ulcers. NOSE: Intact. No lesions. MOUTH: Clear. No discharge. THROAT: Clear. No exudate. LUNGS: Clear. No crackles. CARDIAC: S1, S2. No rub. ABDOMEN: Benign. Bowel sounds positive. GENITALIA/RECTUM: Moore absent. BACK/EXTREMITIES: Edema 0+. NEUROLOGICAL: Alert and motor intact. SKIN: LYMPHATICS: LABORATORY DATA: Labs reviewed. ASSESSMENT AND PLAN: Chronic kidney disease stage 4, stable. Hypertension, stable. Anemia, stable. Metabolic acidosis, continue sodium bicarbonate. No indication for dialysis. Job ID: [id number]
[2019-07-24 13:12] VITALS: BMI 20.9
--- NOTE | 2019-07-24 13:22 | PDOC.HOSPP ---
- Subjective Encounter Date: 07/24/19 Encounter Time: 13:20 Subjective: Mr. Wright was seen today in follow-up of encephalopathy. He will answer some questions, but he is still difficult to understand. - Objective Vital Signs & Weight: Vital Signs (12 hours) Temp Pulse Resp Pulse Ox 07/24/19 11:35 97.7 F 07/24/19 09:49 83 07/24/19 08:00 100 07/24/19 07:34 97.2 F L 07/24/19 07:16 83 14 10 L 07/24/19 04:00 98.6 F 07/24/19 03:53 88 10 L 100 Weight Admit Weight 119 lb 3.2 oz Weight 122 lb 4 oz Most Recent Monitor Data Heart Rate from ECG 81 NIBP 133/82 NIBP BP-Mean 99 Respiration from ECG 17 SpO2 100 I&O: 07/23/19 07/24/19 07/25/19 06:59 06:59 06:59 Intake Total 1000 302 Balance 1000 302 Result Diagrams: 07/24/19 06:24 07/24/19 06:24 Additional Labs: Accuchecks 07/24/19 07/24/19 07/24/19 12:20 05:56 00:23 POC Glucose 204 H 216 H 227 H 07/23/19 21:16 POC Glucose 239 H Hospitalist ROS - Medication Medications: Active Medications Generic Name Dose Route Start Last Admin Trade Name Freq PRN Reason Stop Dose Admin Amino Acids/Electrolytes/Dextrose 1,000 ml 07/22/19 10:45 07/23/19 09:33 Clinimix E 4.25/5 IV 1,000 ml INF POPEYE Administration Aspirin 300 mg 07/20/19 09:00 07/24/19 09:52 Aspirin ID 300 mg DAILY POPEYE Administration Clonidine 0.1 mg 07/22/19 11:33 07/22/19 12:03 Jeccftwb-Yuv-9 Patch TD 0.1 mg Q7DAYS POPEYE Administration Enoxaparin Sodium 30 mg 07/20/19 09:00 07/24/19 09:52 Lovenox SC 30 mg 0900 POPEYE Administration Famotidine 20 mg 07/22/19 21:00 07/23/19 20:50 Pepcid SLOW IVP 20 mg 2100 POPEYE Administration Haloperidol Lactate 2 mg 07/22/19 11:36 07/23/19 04:03 Haldol SLOW IVP 2 mg Q4H PRN Administration Agitation Hydralazine HCl 10 mg 07/22/19 11:34 07/24/19 09:49 Apresoline SLOW IVP 10 mg Q4H PRN Administration SBP Greater Than 180 Piperacillin Sod/Tazobactam 100 mls @ 200 mls/hr 07/22/19 15:00 07/24/19 06: 18 Sod 2.25 gm/ Sodium Chloride IVPB 100 mls 0700,1500,2300 POPEYE Administration Sodium Chloride 1,000 mls @ 50 mls/hr 07/22/19 10:41 07/24/19 08:52 1/2 Normal Saline IV 1,000 mls .Q20H POPEYE Administration Insulin Human Lispro 0 units 07/19/19 11:57 07/20/19 00:16 Humalog SC 4 unit .BEDTIME SLIDING SC PRN Administration Bedtime Correctional Scale Rosuvastatin Calcium 20 mg 07/19/19 21:00 07/23/19 20:50 Crestor PO Not Given HS POPEYE Sertraline HCl 50 mg 07/20/19 09:00 07/23/19 07:06 Zoloft PO Not Given QAM POPEYE - Exam Eye: PERRL Heart: RRR, no murmur, no gallops, no rubs, normal peripheral pulses Respiratory: CTAB, no rales, no ronchi, normal chest expansion Gastrointestinal: soft, non-tender, non-distended, normal bowel sounds, no palpable masses, no hepatomegaly Extremities: no cyanosis, no clubbing, no edema Hosp A/P (1) Metabolic encephalopathy Code(s): G93.41 - METABOLIC ENCEPHALOPATHY Status: Acute (2) Hypertension Code(s): I10 - ESSENTIAL (PRIMARY) HYPERTENSION Status: Chronic Qualifiers: Hypertension type: essential hypertension Qualified Code(s): I10 - Essential (primary) hypertension (3) Diabetes mellitus type 2 in nonobese Code(s): E11.9 - TYPE 2 DIABETES MELLITUS WITHOUT COMPLICATIONS Status: Acute (4) Cerebral vascular disease Code(s): I67.9 - CEREBROVASCULAR DISEASE, UNSPECIFIED Status: Acute (5) Chronic kidney disease, stage 3 Code(s): N18.3 - CHRONIC KIDNEY DISEASE, STAGE 3 (MODERATE) Status: Chronic - Plan * Metabolic encephalopathy-he is still confused * Cerebral Vascular disease- stable * HTN- blood pressure is better * Nutrition-will continue a trial of DHT feeding * Chronic kidney disease- stable * Leukocytosis- improved- will continue IV antibiotics given patient can not reliably swallow * Glossitis- ( tongue enlargemnt) - ? etiology- it appears a little smaller- will continue with Benadryl, and steroids- just daily * DVT and GI Prophylaxis
[2019-07-24] MEDS ORDERED: diphenhydrAMINE 50 MG/ML VIAL IVP SCH (13:30)
[2019-07-24] MEDS ORDERED: methylPREDNISolone Sod Succ 40 MG VIAL IVP SCH (13:30)
--- NOTE | 2019-07-24 18:16 | PRG ---
DATE OF SERVICE: 07/24/2019 I have talked with Mr. Wright's nurse. She states that the family has met with Palliative Care. They do not think the patient would want a PEG tube placed. Apparently, his breathing has improved. The plan is is Palliative Care and the is going to talk with the remainder of the family tomorrow with regard to these issues. If they do want to proceed with a PEG, we will recontact the GI service. I will be in the hospital and check on him again tomorrow. Job ID: [id number]
[2019-07-24] MEDS: Famotidine/PF 20 mg/2ml Vial SLOW IVP SCH (21:47)
[2019-07-24] MEDS: Rosuvastatin 20 MG TAB PO SCH (21:47)
[2019-07-25] MEDS: Rosuvastatin 20 MG TAB PO SCH ×2 (01:47→20:35)
[2019-07-25] MEDS: hydrALAZINE 20 MG/ML VIAL SLOW IVP PRN ×3 (04:17→23:41)
[2019-07-25 05:24] LABS: Anion Gap 21 mmol/L (10-20); BUN (Urea Nitrogen) 62 mg/dL (8.4-25.7); Calc. Creatinine Clearance 24 mL/min (70-130); Calcium 9.1 mg/dL (7.8-10.44); Carbon Dioxide 16 mmol/L (23-31); Chloride 110 mmol/L (98-107); Estimated GFR-MDRD 31; Glucose 282 mg/dL (83-110); Potassium 4.7 mmol/L (3.5-5.1); Sodium 142 mmol/L (136-145)
[2019-07-25 05:36] LABS: Band 1 % (5-11); Hemoglobin 13.3 g/dL (14.0-18.0); Lymphocytes 5 % (21-51); MDiff Complete? YES; Mean Corpuscular HGB CONC 33.5 g/dL (32.0-36.0); Mean Corpuscular Hemoglobin 33.5 pg (27.0-31.0); Mean Platelet Volume 11.5 fL (7.4-10.4); Monocytes 1 % (0-10); Neutrophil 93 % (42-75); Platelet Count 101 thou/uL (130-400); Platelet Morphology Comment Appears Decreased; RBC Distribution Width 13.1 % (11.5-14.5); Red Blood Cell (RBC) Count 3.96 mill/uL (4.70-6.10); White Blood Cell (WBC) Count 8.8 thou/uL (4.8-10.8)
[2019-07-25] MEDS: Piperacillin/Tazobactam 2.25 GM in Sodium Chloride 0.9% 100 ML IVPB SCH ×3 (06:24→23:42)
[2019-07-25] MEDS: HumaLOG 300 UNITS/3 ML VIAL SC SCH ×2 (06:29→18:37)
[2019-07-25] MEDS: Sodium Chloride 0.45% 1,000 ML IV SCH ×2 (07:06→15:42)
--- NOTE | 2019-07-25 07:51 | RAD ---
Abdomen one view HISTORY: Dobbhoff placement. COMPARISON: Earlier exam on the same date. FINDINGS: Gas within the colon and rectum. Nondilated gas-filled loops of small bowel throughout the abdomen. Far lateral margin of the left side of the abdomen is excluded from the image. Dobbhoff feeding catheter has been placed with tip overlying the antrum, directed towards the pylorus . Degenerative changes of the hips partially visualized. Vascular calcifications over the pelvis. IMPRESSION: Dobbhoff feeding catheter within the stomach. Tip is directed towards the pylorus, within the gastric antrum.
--- NOTE | 2019-07-25 07:59 | RAD ---
Abdomen one view HISTORY: Dobbhoff placement. COMPARISON: 07/24/2019. FINDINGS: Nondilated gas-filled loops of small bowel and stomach throughout the partially visualized abdomen. The lower abdomen and right lateral abdomen are excluded from the image. Much of the chest is included. Dobbhoff catheter is not seen over the chest or upper abdomen. Numerous management coordinator leads overlie the chest. IMPRESSION: Dobbhoff feeding catheter not visualized. Nonspecific bowel gas pattern.
--- NOTE | 2019-07-25 09:08 | PDOC.HOSPP ---
- Subjective Encounter Date: 07/25/19 Encounter Time: 09:07 Subjective: Mr. Wright was seen today in follow-up of encephalopathy. He seems a bit more coherent this morning. He is trying to speak. He will squeeze my hand, and lift is legs on command. - Objective Vital Signs & Weight: Vital Signs (12 hours) Temp Pulse BP Pulse Ox 07/25/19 07:08 99 07/25/19 07:02 97.6 F 07/25/19 04:17 87 200/80 H 07/25/19 03:39 97.7 F 07/25/19 02:37 100 07/24/19 23:09 98.3 F Weight Admit Weight 119 lb 3.2 oz Weight 122 lb 4 oz Most Recent Monitor Data Heart Rate from ECG 85 NIBP 148/76 NIBP BP-Mean 100 Respiration from ECG 10 SpO2 100 I&O: 07/24/19 07/25/19 07/26/19 06:59 06:59 06:59 Intake Total 302 550 Balance 302 550 Result Diagrams: 07/25/19 04:27 07/25/19 04:27 Additional Labs: Accuchecks 07/25/19 07/25/19 07/24/19 06:14 00:11 18:08 POC Glucose 268 H 253 H 208 H 07/24/19 12:20 POC Glucose 204 H Hospitalist ROS - Medication Medications: Active Medications Generic Name Dose Route Start Last Admin Trade Name Freq PRN Reason Stop Dose Admin Amino Acids/Electrolytes/Dextrose 1,000 ml 07/22/19 10:45 07/23/19 09:33 Clinimix E 4.25/5 IV 1,000 ml INF POPEYE Administration Aspirin 300 mg 07/20/19 09:00 07/24/19 09:52 Aspirin [place] 300 mg DAILY POPEYE Administration Clonidine 0.1 mg 07/22/19 11:33 07/22/19 12:03 Umislmde-Zze-0 Patch TD 0.1 mg Q7DAYS POPEYE Administration Enoxaparin Sodium 30 mg 07/20/19 09:00 07/24/19 09:52 Lovenox SC 30 mg 0900 POPEYE Administration Famotidine 20 mg 07/22/19 21:00 07/24/19 21:47 Pepcid SLOW IVP 20 mg 2100 POPEYE Administration Haloperidol Lactate 2 mg 07/22/19 11:36 07/23/19 04:03 Haldol SLOW IVP 2 mg Q4H PRN Administration Agitation Hydralazine HCl 10 mg 07/22/19 11:34 07/25/19 04:17 Apresoline SLOW IVP 10 mg Q4H PRN Administration SBP Greater Than 180 Piperacillin Sod/Tazobactam 100 mls @ 200 mls/hr 07/22/19 15:00 07/25/19 06: 24 Sod 2.25 gm/ Sodium Chloride IVPB 100 mls 0700,1500,2300 POPYEE Administration Sodium Chloride 1,000 mls @ 50 mls/hr 07/22/19 10:41 07/25/19 07:06 1/2 Normal Saline IV Not Given .Q20H POPEYE Insulin Human Lispro 0 units 07/19/19 11:57 07/20/19 00:16 Humalog SC 4 unit .BEDTIME SLIDING SC PRN Administration Bedtime Correctional Scale Insulin Human Lispro 0 units 07/21/19 08:15 07/25/19 06:29 Humalog SC 6 unit .MODERATE SLIDING SC POPEYE Administration Rosuvastatin Calcium 20 mg 07/19/19 21:00 07/25/19 01:47 Crestor PO Not Given HS POPEYE Sertraline HCl 50 mg 07/20/19 09:00 07/24/19 15:19 Zoloft PO Not Given QAM POPEYE - Exam Eye: PERRL Heart: RRR, no murmur, no gallops, no rubs, normal peripheral pulses Respiratory: CTAB, no wheezes, no rales, no ronchi, normal chest expansion Gastrointestinal: soft, non-tender, non-distended, normal bowel sounds Extremities: no cyanosis, no clubbing (+ toe amputations), no edema Hosp A/P (1) Metabolic encephalopathy Code(s): G93.41 - METABOLIC ENCEPHALOPATHY Status: Acute (2) Hypertension Code(s): I10 - ESSENTIAL (PRIMARY) HYPERTENSION Status: Chronic Qualifiers: Hypertension type: essential hypertension Qualified Code(s): I10 - Essential (primary) hypertension (3) Diabetes mellitus type 2 in nonobese Code(s): E11.9 - TYPE 2 DIABETES MELLITUS WITHOUT COMPLICATIONS Status: Acute (4) Cerebral vascular disease Code(s): I67.9 - CEREBROVASCULAR DISEASE, UNSPECIFIED Status: Acute (5) Chronic kidney disease, stage 3 Code(s): N18.3 - CHRONIC KIDNEY DISEASE, STAGE 3 (MODERATE) Status: Chronic - Plan * Metabolic encephalopathy-he may have a slight improvement * Cerebral Vascular disease- stable * HTN- blood pressure is better- will continue the Catapres patch * Nutrition-will continue DHT feeding today- hopefully he will improve enough for a diet with risk tomorrow * Chronic kidney disease- stable * Continue empiric antibiotics * Glossitis- ( tongue enlargemnt) - ? etiology- will give another dose of Benadryl and solumdrol- his tongue appears a bit smaller, and he can at least close his mouth over it now. Thyroid function and B-12 and folic acid are normal * DVT and GI Prophylaxis
[2019-07-25] MEDS ORDERED: methylPREDNISolone Sod Succ 40 MG VIAL IVP SCH ×2 (09:15→09:30)
[2019-07-25] MEDS ORDERED: diphenhydrAMINE 50 MG/ML VIAL IVP SCH (09:15)
[2019-07-25] MEDS ORDERED: Bacteriostatic Water 30 ML VIAL FS PRN (09:29)
[2019-07-25] MEDS: Aspirin 300 MG Suppository PR SCH (11:11)
[2019-07-25] MEDS: Enoxaparin Sodium 30 MG/0.3 ML SYRINGE SC SCH (11:11)
--- NOTE | 2019-07-25 14:11 | PRG ---
DATE OF SERVICE: 07/25/2019 SUBJECTIVE: This is a 74-year-old gentleman, being seen for acute kidney injury. The patient is somnolent. OBJECTIVE: GENERAL: The patient is resting. VITAL SIGNS: Afebrile, pulse 87, breathing 16, and blood pressure 167/48. GENERAL APPEARANCE AND MENTAL STATUS: Fair. HEAD/NECK: Normocephalic. Atraumatic. EYES: EOMI. No deformity. EARS: Clear. No ulcers. NOSE: Intact. No lesions. MOUTH: Clear. No discharge. THROAT: Clear. No exudate. LUNGS: Clear. No crackles. CARDIAC: S1, S2. No rub. ABDOMEN: Benign. Bowel sounds positive. GENITALIA/RECTUM: Moore absent. BACK/EXTREMITIES: Edema 0+. NEUROLOGICAL: Alert and motor intact. SKIN: LYMPHATICS: LABORATORY DATA: Labs reviewed. ASSESSMENT AND PLAN: 1. Acute kidney injury with chronic kidney disease, most likely due to underlying sepsis. No indication for dialysis. 2. Hypertension, stable. 3. Anemia, stable. 4. Medication based on GFR appropriate. Job ID: [id number]
--- NOTE | 2019-07-25 15:52 | PRG ---
DATE OF SERVICE: 07/25/2019 SERVICE: Pulmonary Medicine. INTERVAL HISTORY: The patient is doing okay from respiratory standpoint. He remains a little bit sleepy today. That being said, he wakes up and he answers questions appropriately. His speech is garbled, so it is a touch difficult to understand. PHYSICAL EXAMINATION: VITAL SIGNS: Afebrile, pulse 90, blood pressure 184/82, respirations 18, and saturation 100% currently on room air. GENERAL: The patient is awake and alert, in no apparent distress. LUNGS: Decent air entry with no prolonged expiratory phase or wheezing appreciated. HEART: Normal rate and regular. ABDOMEN: Soft, nontender, and nondistended. Bowel sounds are positive. MUSCULOSKELETAL: No cyanosis or clubbing. No pitting in the bilateral lower extremities. NEUROLOGIC: Grossly nonfocal. LABORATORY DATA: WBC 8.8, hemoglobin 13.3, platelets 101,000. Creatinine 2.07 and gently up trending. Bicarb 16 and anion gap 21. Basic metabolic profile is otherwise unremarkable. Cultures remain unremarkable to date. ASSESSMENT: 1. Obstructive sleep apnea, severe. 2. Peripheral vascular disease. 3. Carotid arterial disease. DISCUSSION AND PLAN: The patient is doing fine from respiratory standpoint. From a lung standpoint, he is stable for transition out of the hospital. I will continue to follow so long as he remains in this location. P.r.n. BiPAP can be provided. Job ID: [id number]
[2019-07-25] MEDS: Famotidine/PF 20 mg/2ml Vial SLOW IVP SCH (20:35)
[2019-07-26] MEDS: HumaLOG 300 UNITS/3 ML VIAL SC SCH ×4 (00:05→18:20)
[2019-07-26] MEDS: Piperacillin/Tazobactam 2.25 GM in Sodium Chloride 0.9% 100 ML IVPB SCH (06:27)
[2019-07-26] MEDS: Aspirin 300 MG Suppository PR SCH (08:48)
[2019-07-26] MEDS: Enoxaparin Sodium 30 MG/0.3 ML SYRINGE SC SCH (08:48)
[2019-07-26] MEDS ORDERED: Sodium Bicarbonate Tab 325 MG TAB PO SCH ×2 (09:18→09:45)
--- NOTE | 2019-07-26 10:24 | EEG ---
Referring Physician: MERLIN EEG # [id number] TEST TYPE: ROUTINE PORTABLE INPATIENT REPORT: AN EEG USING THE INTERNATIONAL TEN-TWENTY SYSTEM OF ELECTRODE PLACEMENT WAS PERFORMED. The best waking background is a 8-9 hertz alpha frequency. The patient was quite restless and EMG and movement artifact obscured portions of the record. No epileptiform features were noted. Photic stimulation was unremarkable. IMPRESSION: THIS IS A LIMITED STUDY BUT APPEARS NORMAL FOR AGE. Councilor: [place] Suppository Molding Machine Operator: EEG.RETA JOHN
[2019-07-26 10:56] LABS: Mean Corpuscular HGB CONC 33.3 g/dL (32.0-36.0); Mean Corpuscular Hemoglobin 33.6 pg (27.0-31.0); Mean Platelet Volume 11.3 fL (7.4-10.4); Platelet Count 115 thou/uL (130-400); RBC Distribution Width 13.3 % (11.5-14.5); Red Blood Cell (RBC) Count 3.89 mill/uL (4.70-6.10); White Blood Cell (WBC) Count 12.2 thou/uL (4.8-10.8)
--- NOTE | 2019-07-26 11:14 | PRG ---
DATE OF SERVICE: 07/26/2019 SUBJECTIVE: A 74-year-old gentleman, being seen for acute kidney injury. The patient is confused and not answering to the questions. OBJECTIVE: GENERAL: The patient is resting. VITAL SIGNS: Afebrile, pulse 84, breathing 16, blood pressure 166/80. GENERAL APPEARANCE AND MENTAL STATUS: Fair. HEAD/NECK: Normocephalic. Atraumatic. EYES: EOMI. No deformity. EARS: Clear. No ulcers. NOSE: Intact. No lesions. MOUTH: Clear. No discharge. THROAT: Clear. No exudate. LUNGS: Clear. No crackles. CARDIAC: S1, S2. No rub. ABDOMEN: Benign. Bowel sounds positive. GENITALIA/RECTUM: Moore absent. BACK/EXTREMITIES: Edema 0+. NEUROLOGICAL: The patient is resting. SKIN: LYMPHATICS: LABORATORY DATA: Show hemoglobin 13. Creatinine was 2.07 yesterday. Today's creatinine is pending. ASSESSMENT AND PLAN: 1. Acute kidney injury with chronic kidney disease, most likely multifactorial in the setting of pneumonia, sepsis, and multiorgan failure. No indication for dialysis yet. 2. Metabolic acidosis. Continue sodium bicarbonate. 3. Anemia, stable. Medication based on GFR, appropriate. We will follow the patient's renal function closely. Job ID: [id number]
[2019-07-26 11:19] LABS: Anion Gap 11 mmol/L (10-20); BUN (Urea Nitrogen) 68 mg/dL (8.4-25.7); Calc. Creatinine Clearance 22 mL/min (70-130); Calcium 9.2 mg/dL (7.8-10.44); Carbon Dioxide 23 mmol/L (23-31); Chloride 115 mmol/L (98-107); Estimated GFR-MDRD 28; Glucose 269 mg/dL (83-110); Potassium 4.1 mmol/L (3.5-5.1); Sodium 145 mmol/L (136-145)
[2019-07-26 11:30] LABS: Band 1 % (5-11); Lymphocytes 5 % (21-51); MDiff Complete? YES; Monocytes 6 % (0-10); Myelocyte 1 % (0-0); Neutrophil 87 % (42-75); Platelet Morphology Comment Appears Decreased; Polychromasia SLIGHT = 2-3 cells (100X) (0-2/hpf)
[2019-07-26] MEDS: hydrALAZINE 20 MG/ML VIAL SLOW IVP PRN (11:34)
--- NOTE | 2019-07-26 13:26 | PRG ---
DATE OF SERVICE: 07/26/2019 SERVICE: Pulmonary Medicine. INTERVAL HISTORY: The patient is doing okay from respiratory standpoint. There were no significant overnight events. He is breathing comfortably. He has no complaints otherwise. PHYSICAL EXAMINATION: VITAL SIGNS: Afebrile. Pulse 75, blood pressure 160/68, respirations 14, and saturation 98%, currently on room air. GENERAL: The patient is awake and alert, in no apparent distress. LUNGS: Wonderful air entry. Rhonchi are present. No prolonged expiratory phase or wheezing is appreciated. HEART: Normal rate, regular. ABDOMEN: Soft, nontender, and nondistended. Bowel sounds are positive. MUSCULOSKELETAL: No cyanosis or clubbing. There is no pitting in bilateral lower extremities. LABORATORY DATA: WBC 12.2, hemoglobin 13.0, and platelets 115,000 and gently up-trending. Band count remains low. INR 1.1. Creatinine 2.27 and roughly stable. Basic metabolic profile is otherwise unremarkable. BUN is gently up-trending to 68. ASSESSMENT: 1. Acute hypoxic respiratory failure, resolved. 2. Obstructive sleep apnea, severe. 3. Peripheral vascular disease. 4. Carotid arterial disease. DISCUSSION/PLAN: Because of the patient's critical carotid disease, permissive hypertension should be strongly considered. I will continue to follow while the patient remains in the hospital. From purely respiratory perspective, the patient is stable for discharge from the hospital, provided that he has an adequate care facility at his disposition. It would not be unreasonable to transition over to comfort measures, given the severity of his comorbidities. I will follow if he remains inhouse. Job ID: [id number]
--- NOTE | 2019-07-26 13:51 | PDOC.HOSPP ---
- Subjective Encounter Date: 07/26/19 Encounter Time: 13:50 Subjective: Mr. Wright was seen today in follow-up of encephalopathy. He is still a bit confused. He has not had any significant change overnight. - Objective Vital Signs & Weight: Vital Signs (12 hours) Temp Pulse Pulse BP BP BP Pulse Ox 07/26/19 11:34 82 188/86 H 07/26/19 11:28 98.3 F 07/26/19 11:23 79 161/79 H 191/83 H 07/26/19 07:47 100 07/26/19 07:14 98.6 F 07/26/19 03:58 100 07/26/19 03:56 98.8 F Weight Admit Weight 119 lb 3.2 oz Weight 122 lb 4 oz Most Recent Monitor Data Heart Rate from ECG 75 NIBP 160/68 NIBP BP-Mean 98 Respiration from ECG 16 SpO2 100 I&O: 07/25/19 07/26/19 07/27/19 06:59 06:59 06:59 Intake Total 550 1262 Balance 550 1262 Result Diagrams: 07/26/19 10:29 07/26/19 10:29 Additional Labs: Accuchecks 07/26/19 07/26/19 07/25/19 11:28 05:38 23:58 POC Glucose 247 H 302 H 269 H 07/25/19 17:58 POC Glucose 351 H Hospitalist ROS - Medication Medications: Active Medications Generic Name Dose Route Start Last Admin Trade Name Freq PRN Reason Stop Dose Admin Amino Acids/Electrolytes/Dextrose 1,000 ml 07/22/19 10:45 07/23/19 09:33 Clinimix E 4.25/5 IV 1,000 ml INF POPEYE Administration Aspirin 300 mg 07/20/19 09:00 07/26/19 08:48 Aspirin NM 300 mg DAILY POPEYE Administration Clonidine 0.1 mg 07/22/19 11:33 07/22/19 12:03 Zclcicxc-Pyb-3 Patch TD 0.1 mg Q7DAYS POPEYE Administration Enoxaparin Sodium 30 mg 07/20/19 09:00 07/26/19 08:48 Lovenox SC 30 mg 0900 POPEYE Administration Famotidine 20 mg 07/22/19 21:00 07/25/19 20:35 Pepcid SLOW IVP 20 mg 2100 POPEYE Administration Haloperidol Lactate 2 mg 07/22/19 11:36 07/23/19 04:03 Haldol SLOW IVP 2 mg Q4H PRN Administration Agitation Hydralazine HCl 10 mg 07/22/19 11:34 07/26/19 11:34 Apresoline SLOW IVP 10 mg Q4H PRN Administration SBP Greater Than 180 Piperacillin Sod/Tazobactam 100 mls @ 200 mls/hr 07/22/19 15:00 07/26/19 06: 27 Sod 2.25 gm/ Sodium Chloride IVPB 100 mls 0700,1500,2300 POPEYE Administration Insulin Human Lispro 0 units 07/19/19 11:57 07/20/19 00:16 Humalog SC 4 unit .BEDTIME SLIDING SC PRN Administration Bedtime Correctional Scale Insulin Human Lispro 0 units 07/21/19 08:15 07/26/19 11:35 Humalog SC 4 unit .MODERATE SLIDING SC POPEYE Administration Rosuvastatin Calcium 20 mg 07/19/19 21:00 07/25/19 20:35 Crestor PO 20 mg HS POPEYE Administration Sertraline HCl 50 mg 07/20/19 09:00 07/26/19 08:11 Zoloft PO Not Given QAM POPEYE - Exam Eye: PERRL, anicteric sclera Heart: RRR, no murmur, no gallops, no rubs, normal peripheral pulses Respiratory: CTAB Gastrointestinal: soft, non-tender, non-distended, normal bowel sounds, no palpable masses, no hepatomegaly Extremities: no cyanosis, no edema Psychiatric: normal affect, normal behavior, A&O x 3 Hosp A/P (1) Metabolic encephalopathy Code(s): G93.41 - METABOLIC ENCEPHALOPATHY Status: Acute (2) Hypertension Code(s): I10 - ESSENTIAL (PRIMARY) HYPERTENSION Status: Chronic Qualifiers: Hypertension type: essential hypertension Qualified Code(s): I10 - Essential (primary) hypertension (3) Diabetes mellitus type 2 in nonobese Code(s): E11.9 - TYPE 2 DIABETES MELLITUS WITHOUT COMPLICATIONS Status: Acute (4) Cerebral vascular disease Code(s): I67.9 - CEREBROVASCULAR DISEASE, UNSPECIFIED Status: Acute (5) Chronic kidney disease, stage 3 Code(s): N18.3 - CHRONIC KIDNEY DISEASE, STAGE 3 (MODERATE) Status: Chronic - Plan * Metabolic encephalopathy-he may have a slight improvement * metabolic acidosis- possible from renal failure- will give a few doses of bicarbonate * HTN- blood pressure is still labile- will continue the Catapres patch * Nutrition-will continue DHT feeding until discharge- plan is to go to group home- then can transition to a diet with risks * Chronic kidney disease- stable * Will transition to Augmentin * DM- will add a low dose long acting insulin to help with glycemic control * Glossitis- ( tongue enlargemnt) - ? etiology- there has not been much in the way of improvement- will discontinue to Benadryl and Solumedrol * DVT and GI Prophylaxis
[2019-07-26] MEDS: Dextrose 5% in Water 1,000 ML IV SCH (14:36)
[2019-07-26] MEDS: Rosuvastatin 20 MG TAB PO SCH (21:18)
[2019-07-26] MEDS: Sodium Bicarbonate Tab 325 MG TAB PO SCH (21:18)
[2019-07-26] MEDS: Amoxicillin/Potassium Clav 600 mg/5 ml Oral Suspension PO SCH (21:18)
[2019-07-26] MEDS: Famotidine/PF 20 mg/2ml Vial SLOW IVP SCH (21:19)
[2019-07-26] MEDS: Nystatin 500,000 UNITS/5 ML UDCUP SSW SCH (21:19)
[2019-07-26] MEDS: Insulin Glargine 15 UNITS in Pre-Filled Syringe 1 EACH SC SCH (21:19)
[2019-07-26] MEDS: Nystatin Cream 30 GM TUBE TOP SCH (21:24)
[2019-07-27] MEDS: HumaLOG 300 UNITS/3 ML VIAL SC SCH ×2 (01:29→17:01)
[2019-07-27 05:42] LABS: #Eosinphils 0.1 thou/uL (0.0-0.7); #Lymphocytes 0.7 thou/uL (1.20-3.40); #Monocytes 1.1 thou/uL (0.11-0.59); #Neutrophils 9.8 thou/uL (1.40-6.50); %Basophils 0.3 % (0.0-1.0); %Eosinophils 1.1 % (0.0-10.0); %Lymphocytes 5.6 % (21.0-51.0); %Monocytes 9.6 % (0.0-10.0); %Neutrophils 83.3 % (42.0-75.0); Hemoglobin 13.5 g/dL (14.0-18.0); Mean Corpuscular HGB CONC 32.9 g/dL (32.0-36.0); Mean Corpuscular Hemoglobin 33.2 pg (27.0-31.0); Mean Platelet Volume 11.2 fL (7.4-10.4); Platelet Count 111 thou/uL (130-400); RBC Distribution Width 13.3 % (11.5-14.5); Red Blood Cell (RBC) Count 4.06 mill/uL (4.70-6.10); White Blood Cell (WBC) Count 11.7 thou/uL (4.8-10.8)
[2019-07-27 06:03] LABS: Anion Gap 14 mmol/L (10-20); BUN (Urea Nitrogen) 55 mg/dL (8.4-25.7); Calc. Creatinine Clearance 25 mL/min (70-130); Calcium 9.5 mg/dL (7.8-10.44); Carbon Dioxide 23 mmol/L (23-31); Chloride 113 mmol/L (98-107); Estimated GFR-MDRD 33; Glucose 252 mg/dL (83-110); Phosphorus 2.1 mg/dL (2.3-4.7); Sodium 146 mmol/L (136-145)
--- NOTE | 2019-07-27 08:55 | RAD ---
KUB INDICATION: Dobbhoff tube placement COMPARISON: July 25, 2019 FINDINGS: Bowel gas: Nonspecific but without overt appearance of obstruction. Lung bases: Clear. Additional findings: Dobbhoff feeding tube tip projects in the region of the distal stomach. Osseous structures: No acute osseous abnormality is demonstrated. IMPRESSION: 1. Dobbhoff feeding tube tip projects in the region of the distal stomach.
[2019-07-27] MEDS: Dextrose 5% in Water 1,000 ML IV SCH ×2 (09:23→12:51)
[2019-07-27] MEDS: Nystatin 500,000 UNITS/5 ML UDCUP SSW SCH ×4 (09:23→20:32)
[2019-07-27] MEDS: Insulin Glargine 15 UNITS in Pre-Filled Syringe 1 EACH SC SCH ×2 (09:23→20:30)
[2019-07-27] MEDS: Enoxaparin Sodium 30 MG/0.3 ML SYRINGE SC SCH (09:23)
[2019-07-27] MEDS: hydrALAZINE 20 MG/ML VIAL SLOW IVP PRN (10:17)
[2019-07-27 10:18] VITALS: BP 196/83
--- NOTE | 2019-07-27 10:52 | PRG ---
DATE OF SERVICE: 07/27/2019 SUBJECTIVE: A 74-year-old gentleman is being seen for acute kidney injury. The patient is resting. OBJECTIVE: GENERAL: The patient is resting. VITAL SIGNS: Afebrile, pulse 100, breathing 16, blood pressure 172/72. GENERAL APPEARANCE AND MENTAL STATUS: Fair. HEAD/NECK: Normocephalic. Atraumatic. EYES: EOMI. No deformity. EARS: Clear. No ulcers. NOSE: Intact. No lesions. MOUTH: Clear. No discharge. THROAT: Clear. No exudate. LUNGS: Clear. No crackles. CARDIAC: S1, S2. No rub. ABDOMEN: Benign. Bowel sounds positive. GENITALIA/RECTUM: Moore absent. BACK/EXTREMITIES: Edema 0+. NEUROLOGICAL: Alert and motor intact. SKIN: LYMPHATICS: LABORATORY DATA: Hemoglobin 13.5. Sodium is 146, creatinine 1.9. IMPRESSION: 1. Acute kidney injury on chronic kidney disease, stage 3, due to acute tubular necrosis, stable. 2. Hypertension, stable. 3. Hypernatremia. Would recommend free water intake. No indication for dialysis. We will follow closely. Job ID: [id number]
--- NOTE | 2019-07-27 11:54 | PRG ---
DATE OF SERVICE: 07/27/2019 SERVICE: Pulmonary Medicine. INTERVAL HISTORY: The patient is doing fine from respiratory standpoint. He is breathing comfortably. He is awake and alert. He has no apparent distress. Intermittently falls off to sleep. When he does so, he has both central and obstructive events. PHYSICAL EXAMINATION: VITAL SIGNS: Afebrile, pulse 83, blood pressure 131/63, respirations 15, saturation 100% on room air. GENERAL: The patient is awake and alert, in no apparent distress. LUNGS: Wonderful air entry with no prolonged expiratory phase. No wheezing or crackles are appreciated today. HEART: Normal rate and regular. ABDOMEN: Soft, nontender, nondistended. Bowel sounds are positive. MUSCULOSKELETAL: No cyanosis or clubbing. No pitting in the bilateral lower extremities. NEUROLOGIC: Grossly nonfocal. LABORATORY DATA: WBC 11.7, hemoglobin 13.5, and platelets 111,000. INR 1.1. Creatinine 1.98 which is close to his baseline, BUN 55 and gently downtrending. Sodium 146 and up trending. Basic metabolic profile is otherwise unremarkable. Phosphorus is 2.1. Magnesium 2.4. ASSESSMENT: 1. Acute hypoxic respiratory failure, resolved. 2. Obstructive sleep apnea, severe. 3. Central sleep apnea. 4. Peripheral vascular disease. 5. Carotid arterial disease. 6. Hypernatremia. DISCUSSION AND PLAN: We will increase his free water touch. Phosphorus to be replaced. I will give him a laboratory holiday tomorrow morning. Pulmonary/Critical Care will continue to follow while the patient remains in-house, but from purely respiratory sputum standpoint, he is at baseline. Job ID: [id number]
[2019-07-27] MEDS: Aspirin 300 MG Suppository PR SCH (12:49)
[2019-07-27] MEDS: Nystatin Cream 30 GM TUBE TOP SCH ×3 (12:49→20:31)
[2019-07-27] MEDS: Amoxicillin/Potassium Clav 600 mg/5 ml Oral Suspension PO SCH ×2 (12:49→20:30)
[2019-07-27] MEDS: Sodium Bicarbonate Tab 325 MG TAB PO SCH ×2 (12:50→20:31)
--- NOTE | 2019-07-27 13:01 | PDOC.HOSPP ---
- Subjective Encounter Date: 07/27/19 Encounter Time: 12:58 Subjective: Mr. Wright was seen today in follow-up of metabolic encephalopathy. He has not had much improvement overnight. - Objective Vital Signs & Weight: Vital Signs (12 hours) Temp Pulse BP Pulse Ox 07/27/19 11:10 97.4 F L 07/27/19 10:17 82 196/83 H 07/27/19 07:44 97.4 F L 07/27/19 07:42 100 07/27/19 03:34 97.9 F Weight Admit Weight 119 lb 3.2 oz Weight 122 lb 4 oz Most Recent Monitor Data Heart Rate from ECG 88 NIBP 135/80 NIBP BP-Mean 98 Respiration from ECG 18 SpO2 100 I&O: 07/26/19 07/27/19 07/28/19 06:59 06:59 06:59 Intake Total 1262 160 Balance 1262 160 Result Diagrams: 07/27/19 05:07 07/27/19 05:07 Additional Labs: Accuchecks 07/27/19 07/27/19 07/27/19 12:04 05:36 00:24 POC Glucose 174 H 209 H 365 H 07/26/19 18:10 POC Glucose 349 H Hospitalist ROS - Medication Medications: Active Medications Generic Name Dose Route Start Last Admin Trade Name Freq PRN Reason Stop Dose Admin Amoxicillin/Clavulanate Potassium 600 mg 07/26/19 21:00 07/27/19 12:49 Augmentin 600mg/5ml Oral Susp PO 600 mg BID POPEYE Administration Aspirin 300 mg 07/20/19 09:00 07/27/19 12:49 Aspirin NE 300 mg DAILY POPEYE Administration Clonidine 0.1 mg 07/22/19 11:33 07/22/19 12:03 [id number] Patch TD 0.1 mg Q7DAYS POPEYE Administration Enoxaparin Sodium 30 mg 07/20/19 09:00 07/27/19 09:23 Lovenox SC 30 mg 0900 POPEYE Administration Famotidine 20 mg 07/22/19 21:00 07/26/19 21:19 Pepcid SLOW IVP 20 mg 2100 POPEYE Administration Haloperidol Lactate 2 mg 07/22/19 11:36 07/23/19 04:03 Haldol SLOW IVP 2 mg Q4H PRN Administration Agitation Hydralazine HCl 10 mg 07/22/19 11:34 07/27/19 10:17 Apresoline SLOW IVP 10 mg Q4H PRN Administration SBP Greater Than 180 Insulin Glargine 15 units/ 0.15 mls @ 0 mls/hr 07/26/19 21:00 07/26/19 21:19 Miscellaneous Medication SC 0.15 mls HS POPEYE Administration Insulin Glargine 15 units/ 0.15 mls @ 0 mls/hr 07/27/19 09:00 07/27/19 09:23 Miscellaneous Medication SC 0.15 mls QAM POPEYE Administration Dextrose/Water 1,000 mls @ 75 mls/hr 07/27/19 11:41 07/27/19 12:51 D5w IV 1,000 mls .[id number] POPEYE Administration Insulin Human Lispro 0 units 07/19/19 11:57 07/20/19 00:16 Humalog SC 4 unit .BEDTIME SLIDING SC PRN Administration Bedtime Correctional Scale Insulin Human Lispro 0 units 07/21/19 08:15 07/27/19 01:29 Humalog SC 10 unit .MODERATE SLIDING SC POPEYE Administration Nystatin 1 gm 07/26/19 21:00 07/27/19 12:49 Mycostatin Cream TOP 1 gm TID POPEYE Administration Nystatin 500,000 units 07/26/19 21:00 07/27/19 09:23 Mycostatin SSW Not Given QID POPEYE Rosuvastatin Calcium 20 mg 07/19/19 21:00 07/26/19 21:18 Crestor PO 20 mg HS POPEYE Administration Sertraline HCl 50 mg 07/20/19 09:00 07/27/19 12:50 Zoloft PO 50 mg QAM POPEYE Administration Sodium Bicarbonate 650 mg 07/26/19 21:00 07/27/19 12:50 Bicarbonate, Sodium PO 650 mg BID POPEYE Administration - Exam Eye: PERRL Heart: RRR, no murmur, no gallops, no rubs, normal peripheral pulses Respiratory: CTAB, no wheezes, no rales, no ronchi, normal chest expansion, no tachypnea, normal percussion Gastrointestinal: soft, non-tender, non-distended, normal bowel sounds, no palpable masses, no hepatomegaly Extremities: no cyanosis, no clubbing, no edema Hosp A/P (1) Metabolic encephalopathy Code(s): G93.41 - METABOLIC ENCEPHALOPATHY Status: Acute (2) Hypertension Code(s): I10 - ESSENTIAL (PRIMARY) HYPERTENSION Status: Chronic Qualifiers: Hypertension type: essential hypertension Qualified Code(s): I10 - Essential (primary) hypertension (3) Diabetes mellitus type 2 in nonobese Code(s): E11.9 - TYPE 2 DIABETES MELLITUS WITHOUT COMPLICATIONS Status: Acute (4) Cerebral vascular disease Code(s): I67.9 - CEREBROVASCULAR DISEASE, UNSPECIFIED Status: Acute (5) Chronic kidney disease, stage 3 Code(s): N18.3 - CHRONIC KIDNEY DISEASE, STAGE 3 (MODERATE) Status: Chronic - Plan * Metabolic encephalopathy-continues about the same- this may be his new baseline * metabolic acidosis- resolved- will discontinue the Bicarbonate * HTN- blood pressure is still labile- will continue the Catapres patch * Nutrition-will continue DHT feeding until discharge- plan is to go to long-term- then can transition to a diet with risks * Chronic kidney disease- stable * DM- blood glucose has improved * Awaiting discharge placement
[2019-07-27] MEDS: Rosuvastatin 20 MG TAB PO SCH (20:30)
[2019-07-27] MEDS: Famotidine/PF 20 mg/2ml Vial SLOW IVP SCH (20:31)
[2019-07-28] MEDS: Dextrose 5% in Water 1,000 ML IV SCH ×2 (00:12→10:40)
[2019-07-28] MEDS: HumaLOG 300 UNITS/3 ML VIAL SC SCH (01:35)
[2019-07-28 04:58] LABS: Anion Gap 10 mmol/L (10-20); BUN (Urea Nitrogen) 47 mg/dL (8.4-25.7); Calc. Creatinine Clearance 27 mL/min (70-130); Calcium 8.8 mg/dL (7.8-10.44); Carbon Dioxide 27 mmol/L (23-31); Chloride 107 mmol/L (98-107); Estimated GFR-MDRD 36; Glucose 270 mg/dL (83-110); Potassium 3.5 mmol/L (3.5-5.1); Sodium 140 mmol/L (136-145)
[2019-07-28] MEDS: Amoxicillin/Potassium Clav 600 mg/5 ml Oral Suspension PO SCH (10:38)
[2019-07-28] MEDS: Enoxaparin Sodium 30 MG/0.3 ML SYRINGE SC SCH (10:38)
[2019-07-28] MEDS: Insulin Glargine 15 UNITS in Pre-Filled Syringe 1 EACH SC SCH (10:39)
[2019-07-28] MEDS: Nystatin 500,000 UNITS/5 ML UDCUP SSW SCH ×2 (10:39→13:21)
[2019-07-28] MEDS: Sodium Bicarbonate Tab 325 MG TAB PO SCH (10:39)
[2019-07-28] MEDS: Nystatin Cream 30 GM TUBE TOP SCH (10:41)
[2019-07-28] MEDS: Aspirin 300 MG Suppository PR SCH (10:42)
[2019-07-28] MEDS ORDERED: Aspirin 325 MG TAB PO SCH (10:45)
[2019-07-28] MEDS ORDERED: Dextrose 5% in Water 1,000 ML IV SCH (10:58)
[2019-07-28] MEDS ORDERED: Fluconazole 10 mg/ml Oral Suspension PO SCH (11:00)
--- NOTE | 2019-07-28 11:17 | PRG ---
DATE OF SERVICE: 07/28/2019 SERVICE: Pulmonary Medicine. INTERVAL HISTORY: The patient is doing outstanding from respiratory standpoint. Breathing comfortably. He denies any chest discomfort, nausea, or vomiting. He is not having any shortness of breath. Overnight, he had to be restrained because of some agitation. PHYSICAL EXAMINATION: VITAL SIGNS: Afebrile, pulse 66, blood pressure 177/90, respirations 15, and saturation 100% on room air. GENERAL: The patient is awake and alert, in no apparent distress. LUNGS: Very good air entry. No rhonchi, wheezing, or crackles appreciated. HEART: Normal rate and regular. ABDOMEN: Soft, nontender, and nondistended. Bowel sounds are positive. MUSCULOSKELETAL: No cyanosis or clubbing. There is no pitting in the bilateral lower extremities. NEUROLOGIC: Grossly nonfocal. He is moving all 4 extremities. His speech is garbled. LABORATORY DATA: Sodium 140, potassium 3.5, BUN 47, gently downtrending, creatinine 1.83 which is at baseline. Basic metabolic profile is otherwise unremarkable. ASSESSMENT: 1. Acute hypoxic respiratory failure, resolved. 2. Obstructive sleep apnea, severe. 3. Central sleep apnea. 4. Peripheral vascular disease, severe. 5. Carotid arterial disease, critical. 6. Hypernatremia, resolved. 7. Thrush and Deya of intertriginous spaces. DISCUSSION AND PLAN: I will put the patient on a brief course of fluconazole. Free water will be reduced significantly. Pulmonary/Critical Care will continue to follow along while the patient remains in the IMCU. From a purely respiratory perspective, however, he is stable for transition out of the hospital. It is my understanding, that the patient's family is deciding whether or not to transition over to comfort measures and pursue hospice. Job ID: [id number]
--- NOTE | 2019-07-28 11:59 | PRG ---
DATE OF SERVICE: 07/28/2019 SUBJECTIVE: This is a 74-year-old gentleman, being seen for acute kidney injury. The patient denied any nausea, vomiting, or chest pain. OBJECTIVE: GENERAL: The patient is awake and alert. VITAL SIGNS: Pulse 75, breathing 16, and blood pressure 100/72. GENERAL APPEARANCE AND MENTAL STATUS: Fair. HEAD/NECK: Normocephalic. Atraumatic. EYES: EOMI. No deformity. EARS: Clear. No ulcers. NOSE: Intact. No lesions. MOUTH: Clear. No discharge. THROAT: Clear. No exudate. LUNGS: Clear. No crackles. CARDIAC: S1, S2. No rub. ABDOMEN: Benign. Bowel sounds positive. GENITALIA/RECTUM: Moore absent. BACK/EXTREMITIES: Edema 0+. NEUROLOGICAL: Alert and motor intact. SKIN: LYMPHATICS: LABORATORY DATA: Reviewed. ASSESSMENT AND PLAN: 1. Chronic kidney disease, stage 3, stable. 2. Acute kidney injury, improved. 3. Hypertension, stable. 4. Anemia, stable. 5. Medication based on GFR appropriate. 6. Hypernatremia, resolved. Job ID: [id number]
--- NOTE | 2019-07-28 12:05 | PDOC.HOSPP ---
- Subjective Encounter Date: 07/28/19 Encounter Time: 12:04 Subjective: Mr. Wright was seen today in follow-up of CVA and encephalopathy. He has not had any significant change. - Objective Vital Signs & Weight: Vital Signs (12 hours) Temp Pulse Ox 07/28/19 11:10 97.3 F L 07/28/19 08:00 100 07/28/19 07:18 97.2 F L 07/28/19 03:46 98.2 F Weight Admit Weight 119 lb 3.2 oz Weight 122 lb 4 oz Most Recent Monitor Data Heart Rate from ECG 72 NIBP 180/86 NIBP BP-Mean 117 Respiration from ECG 15 SpO2 100 I&O: 07/27/19 07/28/19 07/29/19 06:59 06:59 06:59 Intake Total 160 2121 Balance 160 2121 Result Diagrams: 07/27/19 05:07 07/28/19 03:53 Additional Labs: Accuchecks 07/28/19 07/28/19 07/27/19 06:05 00:07 17:00 POC Glucose 197 H 283 H 316 H 07/27/19 12:04 POC Glucose 174 H Hospitalist ROS - Medication Medications: Active Medications Generic Name Dose Route Start Last Admin Trade Name Freq PRN Reason Stop Dose Admin Amoxicillin/Clavulanate Potassium 600 mg 07/26/19 21:00 07/28/19 10:38 Augmentin 600mg/5ml Oral Susp PO 600 mg BID POPEYE Administration Clonidine 0.1 mg 07/22/19 11:33 07/22/19 12:03 [id number] Patch TD 0.1 mg Q7DAYS POPEYE Administration Enoxaparin Sodium 30 mg 07/20/19 09:00 07/28/19 10:38 Lovenox SC 30 mg 0900 POPEYE Administration Famotidine 20 mg 07/22/19 21:00 07/27/19 20:31 Pepcid SLOW IVP 20 mg 2100 POPEYE Administration Haloperidol Lactate 2 mg 07/22/19 11:36 07/23/19 04:03 Haldol SLOW IVP 2 mg Q4H PRN Administration Agitation Hydralazine HCl 10 mg 07/22/19 11:34 07/27/19 10:17 Apresoline SLOW IVP 10 mg Q4H PRN Administration SBP Greater Than 180 Insulin Glargine 15 units/ 0.15 mls @ 0 mls/hr 07/26/19 21:00 07/27/19 20:30 Miscellaneous Medication SC 0.15 mls HS POPEYE Administration Insulin Glargine 15 units/ 0.15 mls @ 0 mls/hr 07/27/19 09:00 07/28/19 10:39 Miscellaneous Medication SC 0.15 mls QAM POPEYE Administration Insulin Human Lispro 0 units 07/19/19 11:57 07/20/19 00:16 Humalog SC 4 unit .BEDTIME SLIDING SC PRN Administration Bedtime Correctional Scale Insulin Human Lispro 0 units 07/21/19 08:15 07/28/19 01:35 Humalog SC 6 unit .MODERATE SLIDING SC POPEYE Administration Nystatin 1 gm 07/26/19 21:00 07/28/19 10:41 Mycostatin Cream TOP 1 gm TID POPEYE Administration Nystatin 500,000 units 07/26/19 21:00 07/28/19 10:39 Mycostatin SSW 500,000 units QID POPEYE Administration Rosuvastatin Calcium 20 mg 07/19/19 21:00 07/27/19 20:30 Crestor PO 20 mg HS POPEYE Administration Sertraline HCl 50 mg 07/20/19 09:00 07/28/19 10:39 Zoloft PO 50 mg QAM POPEYE Administration Sodium Bicarbonate 650 mg 07/26/19 21:00 07/28/19 10:39 Bicarbonate, Sodium PO 650 mg BID POPEYE Administration - Exam Eye: PERRL Heart: RRR, no murmur, no gallops, no rubs, normal peripheral pulses Respiratory: CTAB, no wheezes, no rales, no ronchi, normal chest expansion, no tachypnea, normal percussion Gastrointestinal: soft, non-tender, non-distended, normal bowel sounds, no palpable masses, no hepatomegaly Hosp A/P (1) Metabolic encephalopathy Code(s): G93.41 - METABOLIC ENCEPHALOPATHY Status: Acute (2) Hypertension Code(s): I10 - ESSENTIAL (PRIMARY) HYPERTENSION Status: Chronic Qualifiers: Hypertension type: essential hypertension Qualified Code(s): I10 - Essential (primary) hypertension (3) Diabetes mellitus type 2 in nonobese Code(s): E11.9 - TYPE 2 DIABETES MELLITUS WITHOUT COMPLICATIONS Status: Acute (4) Cerebral vascular disease Code(s): I67.9 - CEREBROVASCULAR DISEASE, UNSPECIFIED Status: Acute (5) Chronic kidney disease, stage 3 Code(s): N18.3 - CHRONIC KIDNEY DISEASE, STAGE 3 (MODERATE) Status: Chronic - Plan * Metabolic encephalopathy-continues about the same- this may be his new baseline * The patient's family has decided on Hospice care * Arrangements have been finalized, and he is stable for discharge home.
[2019-07-28 15:15] VITALS: TEMP 97.6
--- NOTE | 2019-07-29 03:42 | DIS ---
DATE OF ADMISSION: 07/19/2019 DATE OF DISCHARGE: 07/28/2019 PRIMARY CARE PHYSICIAN: Dr. Chad Mercer. DISCHARGE DISPOSITION: Home with home hospice. DISCHARGE DIAGNOSES: 1. Probable recurrent cerebrovascular accident. 2. Metabolic encephalopathy. 3. History of severe cerebrovascular disease. 4. Hypertension. 5. Diabetes mellitus, type 2. 6. Dyslipidemia. 7. Probable central sleep apnea. 8. Obstructive sleep apnea. DISCHARGE MEDICATIONS: These will be as tolerated and include; 1. Crestor 20 mg at bedtime. 2. Catapres 0.1 transdermal every 7 days. 3. Aspirin 325 mg daily. 4. Zoloft 50 mg daily. 5. Protonix 40 mg daily. 6. Levemir insulin 25 units subcu daily. 7. Zetia 10 mg daily. 8. Plavix 75 mg daily. 9. Atorvastatin 80 mg daily. 10. Atenolol 25 mg daily. 11. Amlodipine 5 mg daily. PROCEDURES DONE DURING THIS ADMISSION: The patient had a CT [place] [facility] [place] and of the neck and there was severe hemodynamically significant ptosis of the cavernous and supraclinoid right intracranial internal carotid artery. There was 33% narrowing of the proximal right internal carotid artery and 50% luminal narrowing of the origin of the left cervical internal carotid artery. The patient also had an echocardiogram showing an ejection fraction estimated at 55% to 60%. CODE STATUS: DNAR. ALLERGIES: TO ACETAMINOPHEN AND HYDROCODONE. HOSPITAL COURSE: Mr. Wright is a pleasant 74-year-old gentleman who presented to the emergency room after he was found to be somnolent and blood pressure was elevated at 204/90 and he had alteration in his mental status with some confusion. It was originally thought to be an acute cerebrovascular accident. The CT scan of the brain was done initially which did not show any acute intracranial findings. There were some involutional changes consistent with chronic ischemic white matter. There was an old lacunar infarct in the left thalamus and left brainstem. Patient was admitted and a CT angiogram of the neck and [place] [facility] [place] was performed, did show that he had some high-grade stenosis in the internal carotid artery. However, it was within the cranium. This is not a new finding after discussion with the patient's . He was also found to have severe obstructive apnea where he would have apneic spells of up to 10 seconds or more. He was placed on almost continuous BiPAP as a result. He also had what appears to be some central apnea as well which Dick-Owen likes breathing. This is likely the result of his severe cerebrovascular disease. Due to his severe respiratory status, it was felt not safe for him to undergo MRI to establish the diagnosis and he was also not a candidate to have a PEG tube placement as well. He underwent Dobhoff tube feedings during his hospital stay to see if this would help improve his sensorium and unfortunately, he did not significantly improve much. We were able to wean him off continuous BiPAP where his oxygen saturations remained stable throughout the day. The patient's family met with the palliative care team and the decision was made for him to go home with home hospice and on 07/28/2019, the patient was discharged home with hospice. Job ID: [id number]
[2019-07-29] MEDS ORDERED: Fluconazole 40 mg/ml Oral Suspension PO SCH (09:00)
[2019-07-29] MEDS ORDERED: Aspirin 325 MG TAB PO SCH (09:00)
== END 2019-07-28 15:45 | disposition hospice, home (50) | DRG 64 ==
LOC: ERS 07:05 → ERHOLD 09:13 → OBSVTOIN 11:57 → IMCU/EMU 15:50
PROVIDERS: ADMIT Internal Medicine; ATTEND Internal Medicine
PROC: 0DH68UZ Insertion of Feeding Device into Stomach, Via Natural or Artificial Opening Endoscopic (ICD-10-PCS; principal; 2019-07-28)
DX: I63.9 Cerebral infarction, unspecified (principal); G93.41 Metabolic encephalopathy; A41.9 Sepsis, unspecified organism; J18.9 Pneumonia, unspecified organism; J96.01 Acute respiratory failure with hypoxia; N17.0 Acute kidney failure with tubular necrosis; G81.94 Hemiplegia, unspecified affecting left nondominant side; I16.1 Hypertensive emergency; E87.2 Acidosis; E87.0 Hyperosmolality and hypernatremia; Z66 Do not resuscitate; Z51.5 Encounter for palliative care; E11.22 Type 2 diabetes mellitus with diabetic chronic kidney disease; N18.3 Chronic kidney disease, stage 3 (moderate); E78.5 Hyperlipidemia, unspecified; G47.33 Obstructive sleep apnea (adult) (pediatric); F41.9 Anxiety disorder, unspecified; R29.705 NIHSS score 5; I25.10 Atherosclerotic heart disease of native coronary artery without angina pectoris; K21.9 Gastro-esophageal reflux disease without esophagitis; I12.9 Hypertensive chronic kidney disease with stage 1 through stage 4 chronic kidney disease, or unspecified chronic kidney disease; R13.10 Dysphagia, unspecified; E11.51 Type 2 diabetes mellitus with diabetic peripheral angiopathy without gangrene; D64.9 Anemia, unspecified; I65.21 Occlusion and stenosis of right carotid artery; Z95.1 Presence of aortocoronary bypass graft
CPT/HCPCS: 36415; 36416; 70450; 70496; 70498; 71045; 74018; 80048; 80053; 80061; 80069; 80202; 82140; 82607; 82746; 82805; 83605; 83735; 84100; 84439; 84443; 85025; 85610; 85730; 86850; 86900; 86901; 87040; 87045; 87046; 87086; 87149; 87427; 87449; 93005; 93306; 94640; 94660; 95816; 95819; 96374; 96375; J0171; J0360; J0696; J1200; J1630; J1650; J1815; J2060; J2543; J2920; J2930; J3370; J3490; J7050; Q9967; S0028